=== PATIENT | male | born 1975 | race Caucasian/White ===

== ENCOUNTER 2018-10-11 00:19 | Outpatient (CLI) | payer MEDICAID, SELFPAY ==
--- NOTE | 2018-10-11 16:21 | DI.RAD_ITS ---
SYMPTOM/DIAGNOSIS: RT FOOT PAIN, M79.671 RIGHT FOOT: No fracture or dislocation is seen. There are mild degenerative changes at the first MTP joint. There is some deformity at the base of the fifth metatarsal. There are a few small ossicles at this site. The findings are consistent with old trauma. There are small heel spurs. IMPRESSION: Deformity and small ossicles near the base of the fifth metatarsal. Mild degenerative changes. RIGHT ANKLE: There is soft tissue edema. There are circumscribed densities seen both anterior and posterior at the tibiotalar joint. The findings could be related to old trauma. There is mild richy-articular spurring and mild joint space narrowing. No talar dome defect is seen. IMPRESSION: Mild degenerative changes.
== END 2018-10-11 00:39 ==
PROVIDERS: PCP Nurse Practitioner Family; Visit Provider Nurse Practitioner
DX: M79.671 Pain in right foot (principal); M19.071 Primary osteoarthritis, right ankle and foot; M77.31 Calcaneal spur, right foot; M21.6X1 Other acquired deformities of right foot
CPT/HCPCS: 73610; 73630

== ENCOUNTER 2019-11-18 09:02 | Emergency (ER) | payer MEDICAID, SELFPAY ==
[2019-11-18] VITALS (13 sets, daily range): BP systolic 132–150; BP diastolic 71–82; PULSE 72–91; RESP 4–27; TEMP 36.5–36.7; O2SAT 92–97
--- NOTE | 2019-11-18 09:15 | DI.RAD_ITS ---
EXAM: XR CHEST 2V PA LATERAL XR CHEST 2V PA LATERAL CLINICAL HISTORY: cough, sputum, wheeze cough, sputum, wheeze TECHNIQUE: 2D digital imaging was performed. COMPARISON: CHEST 2 VIEWS PA,LAT from 03/01/2014 FINDINGS: The heart is not enlarged. The lungs are clear and well expanded. No pleural effusion seen. Mediastin al contours appear intact. IMPRESSION: Normal chest
--- NOTE | 2019-11-18 09:19 | W.ED.GENAD ---
Discharge Plan Disposition Patient Disposition: HOME Condition: Improving Discharge Details Chief Complaint: GenMedical Clinical Impression: Acute bronchitis with bronchospasm Primary Care Provider: Marisol Noble ED Provider: Ricky Do Home Meds and New Rx's Prescriptions: New doxycycline hyclate 100 mg capsule 100 mg PO BID 10 Days Qty: 20 RF: 0 Discharge Instructions Instructions: Acute Bronchitis (ED) Additional Instructions: Small, frequent sips of fluids so that you maintain hydration. May use the provided albuterol inhaler 1 to 2 puffs every 4-6 hours as needed during times of illness. Please take doxycycline as prescribed for its entire course. Please follow-up with Lalitha Noble in clinic if not improving in 5 days time. Return to the emergency department for any acute concerns. Stand Alone Forms: Work Release Medical Decision Making This is a 44-year-old male presents with days of cough, congestion, generalized systemic illness with fever, chills, diarrhea over the last 24 hours. His exam reveals normal vital signs but bilateral right greater than left end expiratory wheezes. Differential diagnosis includes pneumonia, bronchitis, influenza, bronchospasm. IV was placed, labs obtained, patient given fluid bolus, ketorolac, DuoNeb, Zofran. Chest x-ray: No acute findings Labs: Reassuring with unremarkable CBC, chemistries, negative troponin. Influenza negative. Patient improved with fluids and DuoNeb updraft. Do not feel he requires a burst of steroid but will benefit from the use of an albuterol inhaler. Will treat him for bronchitis. Patient understands homecare, indications to seek a reevaluation, as well as anticipated course of resolution. Lab Data Lab results reviewed: Yes I reviewed the patient's lab results. Labs: Laboratory Results - last 24 hr 11/18/19 11/18/19 09:18 09:18 WBC 7.86 RBC 5.20 Hgb 15.3 Hct 45.0 MCV 86.5 MCH 29.4 MCHC 34.0 RDW 13.8 Plt Count 240 MPV 12.1 H Immature Gran % 0.1 Neutrophils % 61.5 Lymphocytes % 27.0 Monocytes % 6.7 Eosinophils % 4.2 Basophils % 0.5 Absolute Neutrophils 4.83 Absolute Lymphocytes 2.12 Absolute Monocytes 0.53 Absolute Eosinophils 0.33 Absolute Basophils 0.04 Sodium 140 Potassium 4.0 Chloride 104 Carbon Dioxide 31.0 Anion Gap 5.0 BUN 15 Creatinine 0.73 Estimated GFR/1.73 m2 >= 60.00 Glucose 103 Calcium 8.2 L Magnesium 1.9 Total Bilirubin 0.7 AST 14 L ALT 26 Alkaline Phosphatase 65 Troponin I < 0.05 Total Protein 7.0 Albumin 3.5 ECG Data Attestation: I personally reviewed and interpreted this ECG (s) as follows: Prior ECG tracings: not available for review Interpretation: Normal sinus rhythm with a rate of 76, the QRS is narrow, there is a T wave inversion in V2. Nonspecific flattening in lead III, no ST segment elevation. No comparisons available. QTc 423 HPI General Mode of arrival: ambulatory. Date/Time Provider Initiated Documentation: 11/18/19 09:03. Limitations to Documentation: no limitations. Information obtained by: patient. History of Present Illness 44 year old M presents to the emergency department with the chief complaint of 4 days cough, congestion, production of green and yellow sputum, body ache, described as moderate, and is localized to the chest. Patient reports no radiation. Patient started experiencing this day(s) and it has been constant. No relieving factors improve symptom(s), No exacerbating factors reported . Patient notes cough, fever/chills, loss of appetite, nausea/vomiting and weakness; denies chest pain, shortness of breath and syncope. Patient did receive the following treatments prior to arrival, none Related Data Home Medications Medication Instructions Recorded Confirmed doxycycline hyclate 100 mg PO BID 10 Days #20 cap 11/18/19 Previous Rx's Medication Instructions Recorded doxycycline hyclate 100 mg PO BID 10 Days #20 cap 11/18/19 Allergies Allergy/AdvReac Type Severity Reaction Status Date / Time No Known Allergies Allergy Unverified 11/18/19 09:11 General Stated Complaint: GenMedical MICHAEL: 2 Review of Systems Narrative: Denies to me chest pain. States no shortness of breath. Continues to smoke. No recent travel or known sick contacts. 6 systems reviewed and otherwise negative [facility], [facility] Social History Smoking/Tobacco Use Status: Current every day Alcohol Intake: never Drug use: Never Do you feel safe at home: Yes Do you feel safe in your relationship?: Yes Exam Narrative Exam Narrative: GEN: awake, alert, oriented 3. Pleasant, well groomed, interactive. HEAD: Normocephalic, atraumatic ENT: Mucous membranes moist, oropharynx unremarkable, External ear exam unremarkable EYES: PERRL, EOMI NECK: Full ROM, no ALANA, no menigismus CHEST/RESP: Nontender, bibasilar right greater than left expiratory wheeze CARDIOVASCULAR: RRR, no murmur, rub ravi. 2+ Rad pulse bilateral ABDOMEN: Soft, nontender, no mass. +Bowel sounds EXT: Full ROM, no edema, no rash Neuro: Grossly normal neurologic exam, conversant, interactive. Psych: Speech fluent, thoughts congruent, affect normal Course Vital Signs Vital signs: Vital Signs Temperature 36.5 C 11/18/19 09:06 Pulse 76 11/18/19 09:06 Respiratory Rate 24 11/18/19 09:06 Blood Pressure 140/73 11/18/19 09:06 Pulse Oximetry 95 11/18/19 09:06 Temperature 36.5 C 11/18/19 09:06 Temperature Source Oral 11/18/19 09:06 Pulse 76 11/18/19 09:06 Respiratory Rate 24 11/18/19 09:06 Respiratory Effort Non-Labored 11/18/19 09:10 Blood Pressure 140/73 11/18/19 09:06 Blood Pressure Position Supine 11/18/19 09:06 Pulse Oximetry 95 11/18/19 09:06 Oxygen Delivery Method Room Air 11/18/19 09:06 Oxygen Flow Rate 0 11/18/19 09:06 Pain Level 5 11/18/19 09:06
[2019-11-18 09:38] LABS: Abs Immature Grans 0.01 k/cumm (0.0-0.09); Absolute Basophil Count 0.04 k/cumm (0.0-0.2); Absolute Eosinophil Count 0.33 k/cumm (0.0-0.7); Absolute Lymphocyte Count 2.12 k/cumm (1.2-3.4); Absolute Monocyte Count 0.53 k/cumm (0.11-0.7); Absolute Neutrophil Count 4.83 k/cumm (1.2-6.7); Basophils % 0.5; Eosinophils % 4.2; HGB 15.3 g/dL (13.5-17.5); Immature Grans % 0.1 %; Mean Corpuscular Hemoglobin 29.4 pg (27.0-33.0); Mean Corpuscular Volume 86.5 fL (80-95); Mean Platelet Volume 12.1 fL (8.0-11.0); Monocytes % 6.7; Neutrophils % 61.5; Platelet Count 240 x1000/uL (130-400); RBC Distribution Width 13.8 % (11.8-14.1); White Blood Cell Count 7.86 k/cumm (4.4-10.8)
[2019-11-18] MEDS: Ketorolac 15 MG/ML VIAL IVP (09:49)
[2019-11-18] MEDS: Albuterol/Ipratropium 3 ML UPD VIAL UPD (09:50)
[2019-11-18] MEDS: Ondansetron 4 MG/2 ML VIAL IVP (09:50)
[2019-11-18] MEDS: Normal Saline 1,000 ML 1000 ML IV (09:51)
[2019-11-18 09:59] LABS: ALT 26 U/L (16-63); AST 14 U/L (15-37); Albumin 3.5 g/dL (3.4-5.0); Alkaline Phosphatase 65 U/L (46-116); BUN 15 mg/dL (7-18); Bilirubin, Total 0.7 mg/dL (0.2-1.0); CREATININE 0.73 mg/dL (0.70-1.30); Calcium 8.2 mg/dL (8.5-10.1); Chloride 104 mmol/L (98-107); Glucose 103 mg/dL (74-106); Magnesium 1.9 mg/dL (1.8-2.4); Sodium 140 mmol/L (136-145); Troponin I < 0.05 ng/Ml (<0.06)
--- NOTE | 2019-11-18 11:05 | DI.VRAD_ITS ---
PROCEDURE INFORMATION: Exam: XR Chest, 2 Views Exam date and time: 11/18/2019 10:33 AM Age: 44 years old Clinical indication: Cough and wheezing; Patient HX: Sputum TECHNIQUE: Imaging protocol: XR of the chest Views: 2 views. COMPARISON: CR CHEST 2 VIEWS PA,LAT 03/01/2014 3:30 PM FINDINGS: Lungs: Unremarkable. No consolidation. Pleural space: Unremarkable. No pleural effusion. No pneumothorax. Heart/Mediastinum: Unremarkable. No cardiomegaly. Bones/joints: Unremarkable. IMPRESSION: No acute findings. Dictated and Authenticated by: Stew Strauss MD. Ordering:JUDY García MD
== END 2019-11-18 11:16 | disposition home or self-care (01) ==
PROVIDERS: Emergency Provider Emergency Medicine; PCP Nurse Practitioner Family
DX: R50.9 Fever, unspecified (principal); R05 Cough; J20.9 Acute bronchitis, unspecified; F17.210 Nicotine dependence, cigarettes, uncomplicated
CPT/HCPCS: 36415; 80053; 87449; 93005; 94640; 96361; 96374; 96375; 99285; 71046; 83735; 84484; 85025; 93010; 99284; J1885; J2405; J7620

== ENCOUNTER 2020-06-01 12:19 | Emergency (ER) | payer MEDICAID, SELFPAY ==
[2020-06-01 12:27] VITALS: BP 141/93; PULSE 79; RESP 18; TEMP 37; O2SAT 97
--- NOTE | 2020-06-01 13:03 | ED.GENADUL_ITS ---
Discharge Plan Disposition Patient Disposition: HOME Condition: Stable Discharge Details Chief Complaint: Orthopedic Clinical Impression: Arm pain Primary Care Provider: Marisol Noble ED Provider: Ajith Delgado Home Meds and New Rx's Prescriptions: Continued citalopram 10 mg tablet 10 mg PO DAILY RF: 0 Discharge Instructions Instructions: Muscle Strain (ED) Additional Instructions: [id number] Motrin and/or Tylenol as directed for discomfort. Cool and/or warm compresses every 2 hours for 20 minutes. Gentle stretching as tolerated. Please watch for new or worsening symptoms and return to the ER for any concerns. I do recommend follow-up with your primary care provider in the next week, if symptoms are not persisting outpatient physical therapy and/or referral to orthopedics may be indicated. Stand Alone Forms: Work Release Discharge Data Discharge Date/Time-TO BE ENTERED AT DEPARTURE: 06/01/20 13:19 Medical Decision Making 44-year-old gentleman who injured his right upper arm a couple days ago after lifting a heavy object. Reports he had mild tingling but that has resolved. He is able to move his arm fully but that does increase his discomfort. He took Motrin today which greatly helped his discomfort. Clinically he appears well, neuro, vascular, tendon intact. There is no bony point tenderness. A little suspicion of bony abnormality. We discussed x-ray in this setting, patient does not feel as though it is indicated and I agree. The musculoskeletal in nature. No obvious tendon rupture. No bony point tenderness. No deformity. We discussed our options. He will rest, cool and/or warm compresses, [id number] anti-inflammatories as directed. He will do light duty at work for the next 5 days and if symptoms persist will follow-up with a primary care provider or orthopedic provider. He was encouraged to return to the ER for new or worsening symptoms. Medical Records Medical records reviewed: Yes I reviewed the patient's medical records. HPI General Mode of arrival: ambulatory . Date/Time Provider Initiated Documentation: 06/01/20 12:30 . Limitations to Documentation: no limitations . Information obtained by: patient . HPI Narrative: This is a 44-year-old gentleman who denies significant past medical history, presenting for right arm pain that began 2 days ago when lifting an object overhead that was nearly 150 pounds. This occurred at work. He is right-hand dominant. He reports that the pain at the time was mild but subsequently throughout the day and the following day pain became worse and more stiff. At one point he did have tingling in his hand but that has resolved completely. Patient reports that he took Motrin today which helped his discomfort greatly. At rest he has very little discomfort but when attempting to move over 90 degrees he states that his pain increases. Denies any other injury, neck pain, chest pain, numbness, or weakness. He states that his employer requested that he be evaluated. Related Data Home Medications Medication Instructions Recorded Confirmed citalopram 10 mg PO DAILY 06/01/20 06/01/20 Allergies Allergy/AdvReac Type Severity Reaction Status Date / Time No Known Allergies Allergy Unverified 06/01/20 12:27 General Stated Complaint: Orthopedic MICHAEL: 4 Review of Systems Constitutional Constitutional: Denies fever(s) and Denies weakness ENT Ears, Nose, Mouth, and Throat: Denies neck pain Cardiovascular Cardiovascular: Denies chest pain and Denies dyspnea Respiratory Respiratory: Denies dyspnea Gastrointestinal Gastrointestinal: Denies abdominal pain, Denies nausea and Denies vomiting Musculoskeletal Musculoskeletal: Denies back pain, Denies neck pain, Denies numbness and Reports tingling Integumentary/Breasts Skin/Breast: Denies rash Neurologic Neurologic: Denies numbness, Reports tingling and Denies weakness [facility] Social History Smoking/Tobacco Use Status: Current every day Alcohol Intake: current Alcohol Intake frequency: holidays/special occasions only Drug use: Never Substance use type: does not use Do you feel safe at home: Yes Do you feel safe in your relationship?: Yes Exam Const General: cooperative, healthy appearing, comfortable and no acute distress Orientation: alert, awake and oriented x3 HENMT Head: normal to inspection, normocephalic and atraumatic Face and sinus: normal facial exam Mouth: moist mucous membranes Eyes Conjunctivae: conjunctivae normal Sclera: sclerae normal Neck Neck: normal visual inspection, full ROM, trachea midline, supple and nontender Chest Chest: normal palpation of entire chest wall Resp Effort & Inspection: normal respiratory effort and able to speak in complete sentences Auscultation: clear to auscultation bilaterally Cardio Rate: regular rate Rhythm: regular rhythm Back/Spine/Pelvis Back: No back tenderness Skin General skin exam: no rashes or lesions noted Neuro General: patient alert, patient awake, moves all extremities and no focal motor deficits Gait: normal gait Motor: muscle tone normal throughout and strength 5/5 throughout Sensory Exam: no sensory deficits noted Extrem Right upper extremity: normal to inspection, full ROM (However increased pain with movement over 90 degrees.), normal capillary refill and shoulder/upper arm Details: normal to inspection, tenderness (Diffuse, mild, bicep and tricep), axillary nerve sensory function normal and normal ROM; no swelling and no ecchymosis Left upper extremity: normal to inspection, full ROM and normal capillary refill Psych Appearance: grossly normal Mental Status: mental status grossly normal Course Vital Signs Vital signs: Vital Signs Temperature 37.0 C 06/01/20 12:27 Pulse 79 06/01/20 12:27 Respiratory Rate 18 06/01/20 12:27 Blood Pressure 141/93 H 06/01/20 12:27 Pulse Oximetry 97 06/01/20 12:27 Temperature 37.0 C 06/01/20 12:27 Temperature Source Oral 06/01/20 12:27 Pulse 79 06/01/20 12:27 Respiratory Rate 18 06/01/20 12:27 Respiratory Effort Non-Labored 06/01/20 12:27 Blood Pressure 141/93 H 06/01/20 12:27 Blood Pressure Position Sitting 06/01/20 12:27 Pulse Oximetry 97 06/01/20 12:27 Oxygen Delivery Method Room Air 06/01/20 12:27 Oxygen Flow Rate 0 06/01/20 12:27 Pain Level 8 06/01/20 12:36 Comment 06/01/20 12:27
== END 2020-06-01 13:19 | disposition home or self-care (01) ==
PROVIDERS: Emergency Provider Physician Assistant; PCP Nurse Practitioner Family
DX: M79.601 Pain in right arm (principal); X50.0XXA Overexertion from strenuous movement or load, initial encounter; Y99.0 Civilian activity done for income or pay
CPT/HCPCS: 99282

== ENCOUNTER 2020-08-10 15:35 | Emergency (ER) | payer MEDICAID, SELFPAY ==
[2020-08-10 15:39] VITALS: BP 177/105; PULSE 85; RESP 16; TEMP 36.7; O2SAT 97
--- NOTE | 2020-08-10 15:45 | DI.RAD_ITS ---
EXAM: XR PORTABLE CHEST AP CLINICAL HISTORY: cough, r/o pneumonia TECHNIQUE: COMPARISON: No exams were available for comparison FINDINGS: Portable AP chest at 1600 hours. The heart is at the upper limits of normal in size. There are a qu estionable patchy bibasilar infiltrates, pneumonia not excluded. Upper lung zones appear fairly davonte r. No gross pleural effusion on this frontal film. IMPRESSION: Question patchy basilar pneumonia. Follow-up PA and lateral chest suggested. RADIATION DOSE DELIVERED: Total DLP
--- NOTE | 2020-08-10 15:50 | W.ED.GENAD ---
Discharge Plan Disposition Patient Disposition: HOME Condition: Stable Discharge Details Clinical Impression: Pneumonia Primary Care Provider: Marisol Noble ED Provider: Ruddy Olivo Home Meds and New Rx's Prescriptions: New doxycycline hyclate 100 mg tablet 100 mg PO BID Qty: 20 RF: 0 Continued citalopram 10 mg tablet 10 mg PO DAILY RF: 0 Discharge Instructions Instructions: Upper Respiratory Infection (ED), Community Acquired Pneumonia (ED) Additional Instructions: There is evidence of mild or early pneumonia. Please take the antibiotic as directed. Your Covid test is not back yet. Out of an abundance of precaution it would be reasonable to self quarantine yourself for a total of 14 days or until completely symptom-free for greater than 24-48 hours. It would be prudent to wear a mask at all times, always wash your hands frequently, follow-up closely with your primary care provider. Your Covid test should come back in the next 7 to 10 days, you will be contacted when the results do return. If you do not hear back from a during that time please call us to go over your results. You can always call their office first. If you notice any worsening of your symptoms, or any new symptoms such as vomiting, diarrhea, fever, chills, shortness of breath, chest pain, numbness, weakness, or fainting , please CALL and then return immediately to the emergency department for reevaluation. Please CALL first and then follow up with your primary care provider as soon as possible for reassessment and reevaluation. As always, it was a pleasure participating in your medical care today. Stand Alone Forms: PENDING COVID-19 TESTING Referrals: Marisol Noble [Primary Care Provider] - Medical Decision Making 44-year-old male with a past medical history of tobacco abuse who presents today for evaluation of cough, muscle aches, sore throat. Patient states that for the last 24 hours he has had these symptoms. Cough is relatively nonproductive, no hemoptysis. He denies chest pain or shortness of breath or headache or neck pain or vomiting or diarrhea or nausea. He denies exposure to any other sick contacts. He denies any other complaints. No other modifying factors. Physical exam is unremarkable, no tachycardia, tachypnea, hypoxemia or fever. Lungs are unremarkable. Suspect viral etiology. Will test for flu and Covid and get a portable chest x-ray. 5 PM Chest x-ray shows evidence concerning for mild early pneumonia. We will start the patient on doxycycline. He has been tested for flu and this is negative, we are pending Covid testing. Discussed recommendations for self isolation. With no hypoxemia, tachycardia, or tachypnea no indication for admission or supplemental oxygen. I have extensively reviewed the treatment plan and discharge instructions with the patient. I have addressed all patient concerns at this time. The patient was made aware of what symptoms to monitor for that would warrant a return to the emergency department. Discussed the plan with the patient, they demonstrate verbal understanding and agreement with our assessment and plan at this time. FINDINGS: Lungs: There are mild somewhat linear opacities in bilateral lower lungs which could be due to atelectasis or infiltrate. Cardiac silhouette is within normal limits in size. The interstitium is stable. Pleural space: Unremarkable. No pleural effusion. No pneumothorax. Heart/Mediastinum: See Lungs finding. Bones/joints: No acute abnormality in the osseous structures. Soft tissues are unremarkable. IMPRESSION: Mild opacities in the bilateral lower lungs which could reflect atelectasis or infiltrate. No pleural effusion . Thank you for allowing us to participate in the care of your patient. Dictated and Authenticated by: Agustin Conde DO 08/10/2020 4:25 PM Eastern Time ([place] & [place]) HPI General Date/Time Provider Initiated Documentation: 08/10/20 15:37. HPI Narrative: 44-year-old male with a past medical history of tobacco abuse who presents today for evaluation of cough, muscle aches, sore throat. Patient states that for the last 24 hours he has had these symptoms. Cough is relatively nonproductive, no hemoptysis. He denies chest pain or shortness of breath or headache or neck pain or vomiting or diarrhea or nausea. He denies exposure to any other sick contacts. He denies any other complaints. No other modifying factors. Related Data Home Medications Medication Instructions Recorded Confirmed citalopram 10 mg PO DAILY 06/01/20 08/10/20 doxycycline hyclate 100 mg PO BID #20 tab 08/10/20 Previous Rx's Medication Instructions Recorded doxycycline hyclate 100 mg PO BID #20 tab 08/10/20 Allergies Allergy/AdvReac Type Severity Reaction Status Date / Time No Known Allergies Allergy Unverified 08/10/20 15:44 General Stated Complaint: GenMedical MICHAEL: 3 Review of Systems All systems reviewed & are unremarkable except as noted in HPI and below PFSH Social History Smoking/Tobacco Use Status: Current every day Tobacco Type: cigarettes Smoking risk assessment performed?: Yes Alcohol Intake: current Alcohol Intake frequency: holidays/special occasions only Drug use: Never Substance use type: does not use Do you feel safe at home: Yes Do you feel safe in your relationship?: Yes Exam Narrative Exam Narrative: 1.Const: Well-nourished, Well-developed, appearing stated age 2.Eyes: PERRL, no conjunctival injection, and symmetrical lids. 3.ENT: Atraumatic external nose and ears. Moist MM. Neck: Symmetric, trachea midline, No thyromegaly. No nuchal rigidity. Minimal erythema on the uvula, no significant erythema in the posterior pharynx, no cough or exudate or tonsillar enlargement. 4.CVS: +S1/S2, No murmurs or gallops. Peripheral pulses 2+ and equal in all extremities. Brisk capillary refill in all extremities. 5.RESP: Unlabored respiratory effort. Clear to auscultation bilaterally. No wheezes rales or rhonchi 6.GI: Soft, Nontender/Nondistended, No hepatosplenomegaly. No guarding or rebound. 7.MSK: Normocephalic/Atraumatic, Extremities w/o deformity or ttp No cyanosis or clubbing, Normal movement of all extremities 8.Skin: Warm, Dry. No rashes or lesions. 9.Neuro: benefits consultant II-XII grossly intact. Sensation grossly intact, no focal neurologic deficits. 10.Psych: (AAO) x3. Appropriate mood and affect Course Vital Signs Vital signs: Vital Signs Temperature 36.7 C 08/10/20 15:39 Pulse 85 08/10/20 15:39 Respiratory Rate 16 08/10/20 15:39 Blood Pressure 177/105 H 08/10/20 15:39 Pulse Oximetry 97 08/10/20 15:39 Temperature 36.7 C 08/10/20 15:39 Temperature Source Skin 08/10/20 15:39 Pulse 85 08/10/20 15:39 Respiratory Rate 16 08/10/20 15:39 Respiratory Effort Non-Labored 08/10/20 15:39 Blood Pressure 177/105 H 08/10/20 15:39 Blood Pressure Position Supine 08/10/20 15:39 Pulse Oximetry 97 08/10/20 15:39 Pain Level 2 08/10/20 15:39 Lab/Test Results Lab/Test Results: 08/10/20 15:49 Nasopharynx Influenza Types A,B Antigen - Pending
[2020-08-10 15:52] VITALS: RESP 16
--- NOTE | 2020-08-10 16:25 | DI.VRAD_ITS ---
PROCEDURE INFORMATION: Exam: XR Chest, 1 View Exam date and time: 08/10/2020 3:49 PM Age: 44 years old Clinical indication: Cough and shortness of breath TECHNIQUE: Imaging protocol: XR of the chest Views: 1 view. COMPARISON: CR XR CHEST 2V PA LATERAL 11/18/2019 10:32 AM FINDINGS: Lungs: There are mild somewhat linear opacities in bilateral lower lungs which could be due to atelectasis or infiltrate. Cardiac silhouette is within normal limits in size. The interstitium is stable. Pleural space: Unremarkable. No pleural effusion. No pneumothorax. Heart/Mediastinum: See Lungs finding. Bones/joints: No acute abnormality in the osseous structures. Soft tissues are unremarkable. IMPRESSION: Mild opacities in the bilateral lower lungs which could reflect atelectasis or infiltrate. No pleural effusion . Dictated and Authenticated by: Agustin Conde MD. Ordering:ELEONORA Fox MD
[2020-08-10] MEDS: Doxycycline Hyclate 100 MG, 2 CAPS/BTL PO (17:09)
[2020-08-14 03:37] LABS: Patient Race White; SARS-CoV-2 RNA Undetected (Undetected); SARS-CoV-2 Specimen Source Nasopharynx
== END 2020-08-10 17:04 | disposition home or self-care (01) ==
LOC: ER 16:02
PROVIDERS: Emergency Provider Student in an Organized Health Care Education/Training Program; PCP Nurse Practitioner Family
DX: J18.8 Other pneumonia, unspecified organism (principal); F17.210 Nicotine dependence, cigarettes, uncomplicated; Z11.59 Encounter for screening for other viral diseases
CPT/HCPCS: 87449; 99283; U0003; 71045; 99284

== ENCOUNTER 2020-10-25 16:21 | Emergency (ER) | payer MEDICAID, SELFPAY ==
[2020-10-25 16:24] VITALS: BP 151/79; PULSE 77; RESP 20; TEMP 36.3; O2SAT 98
--- NOTE | 2020-10-25 16:30 | DI.RAD_ITS ---
EXAM: XR RIBS RT W PA LAT CHEST CLINICAL HISTORY: fall/pain TECHNIQUE: 2D digital imaging was performed. COMPARISON: CR,XR XR PORTABLE CHEST AP from 08/10/2020 FINDINGS: Exam is limited by the patient's body habitus. The heart appears mildly enlarged versus magnificati on. The lungs appear clear. No pneumothorax is seen. There is no infiltrate or effusion. No thora cic compression fractures are seen. Two views of the right ribs were performed. One of the views sh ows motion. No rib fracture is visible. IMPRESSION: Limited exam secondary to patient body habitus. No acute abnormality is identified.
--- NOTE | 2020-10-25 16:40 | ED.GENADUL_ITS ---
Discharge Plan Disposition Patient Disposition: HOME Condition: Stable Discharge Details Clinical Impression: Right-sided chest wall pain Primary Care Provider: Marisol Noble ED Provider: Ajith Delgado Home Meds and New Rx's Prescriptions: Continued citalopram 10 mg tablet 10 mg PO DAILY RF: 0 Discharge Instructions Instructions: Chest Wall Pain (ED) Additional Instructions: Chest x-ray was unremarkable. I am giving you a work note for tomorrow. [id number] Tylenol and/or Motrin as directed for discomfort. Cool and/or warm compresses every 2 hours for 20 minutes. Gentle stretching as tolerated. Please watch for new or worsening symptoms and return to the ER for any concerns. Otherwise please reach out to your primary care provider on Wednesday for prompt outpatient reevaluation. Stand Alone Forms: Work Release Medical Decision Making 45-year-old male presents with right-sided back and chest wall discomfort status post mechanical fall earlier this morning down 12 stairs. He reports the pain is 2 out of 10 at rest, worse with movement. Denies any other injury. Clinically he appears well, nontoxic. Extremely low suspicion for pneumothorax. Pulse of 77, O2 sat 98% on room air. Do not appear to be any distracting injuries. Abdomen soft, nontender. He is neuro intact. Will obtain right sided rib film with PA chest. Chest x-ray read by radiology is unremarkable. Discussed findings with patient. He is relieved. He does believe a work note for 1 day will be helpful. Will provide work note for tomorrow. Patient comfortable discharge and has no additional questions or concerns. Medical Records Medical records reviewed: Yes I reviewed the patient's medical records. HPI General Mode of arrival: ambulatory . Date/Time Provider Initiated Documentation: 10/25/20 16:26 . Limitations to Documentation: no limitations . Information obtained by: patient . HPI Narrative: This is a 45-year-old gentleman, past medical history of obesity, current smoker, presenting with right-sided chest wall pain status post a mechanical fall downstairs this morning. He was at home, trying to step around his dog, fell down approximately 12 stairs. He states that he fell backwards and then down the stairs. He denies striking his head, LOC, headache, neck pain, anterior chest wall pain, abdominal pain, nausea, vomiting, bowel or bladder incontinence or retention. Denies numbness, tingling, weakness. He reports right sided chest wall pain 2 out of 10 at rest, worse with movement or engaging of his core. He did take [id number] medication with some relief. 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 Related Data Home Medications Medication Instructions Recorded Confirmed citalopram 10 mg PO DAILY 06/01/20 10/25/20 Allergies Allergy/AdvReac Type Severity Reaction Status Date / Time No Known Allergies Allergy Unverified 10/25/20 16:27 General Stated Complaint: Nk/Back Pain MICHAEL: 3 Review of Systems Constitutional Constitutional: Denies headache(s) and Denies weakness Eyes Eyes: Denies change in vision ENT Ears, Nose, Mouth, and Throat: Denies headache(s) and Denies neck pain Cardiovascular Cardiovascular: Reports chest pain (Chest wall, lateral) and Denies dyspnea Respiratory Respiratory: Denies dyspnea Gastrointestinal Gastrointestinal: Denies abdominal pain, Denies nausea and Denies vomiting Genitourinary Genitourinary: Denies hematuria Musculoskeletal Musculoskeletal: Reports back pain, Denies neck pain, Denies numbness and Denies tingling Neurologic Neurologic: Denies headache(s), Denies numbness, Denies tingling and Denies weakness [facility] Social History Smoking/Tobacco Use Status: Current every day Tobacco Type: cigarettes Smoking risk assessment performed?: Yes Alcohol Intake: current Alcohol Intake frequency: holidays/special occasions only Drug use: Never Substance use type: does not use Do you feel safe at home: Yes Do you feel safe in your relationship?: Yes Exam Const General: cooperative, healthy appearing, comfortable and no acute distress Orientation: alert, awake and oriented x3 HENMT Head: normal to inspection, normocephalic and atraumatic Eyes General: appearance normal, both eyes and all related structures Conjunctivae: conjunctivae normal Sclera: sclerae normal Neck Neck: normal visual inspection, full ROM, no meningeal signs, trachea midline, supple and nontender Chest Chest: normal inspection of the chest, no crepitus and tenderness Chest/axillae images: 1. Diffuse discomfort, without crepitus. Skin is intact. There is no midline point tenderness or bony point tenderness. Resp Effort & Inspection: normal respiratory effort and able to speak in complete sentences Auscultation: clear to auscultation bilaterally Cardio Rate: regular rate Rhythm: regular rhythm GI Inspection: normal to inspection, large pannus and obesity Palpation: soft and nontender Back/Spine/Pelvis Back: back tenderness Back/spine/pelvis image: 1. Diffuse discomfort, without crepitus. Skin is intact. There is no midline point tenderness or bony point tenderness. Skin General skin exam: no rashes or lesions noted Neuro General: patient alert, patient awake, patient oriented x3, moves all extremities and no focal motor deficits Cognition: normal cognition Speech: speech normal Gait: normal gait Motor: muscle tone normal throughout Sensory Exam: no sensory deficits noted Extrem General: normal to inspection and full ROM Psych Appearance: grossly normal Mental Status: mental status grossly normal Course Vital Signs Vital signs: Vital Signs Temperature 36.3 C L 10/25/20 16:24 Pulse 77 10/25/20 16:24 Respiratory Rate 20 10/25/20 16:24 Blood Pressure 151/79 H 10/25/20 16:24 Pulse Oximetry 98 10/25/20 16:24 Temperature 36.3 C L 10/25/20 16:24 Temperature Source Skin 10/25/20 16:24 Pulse 77 10/25/20 16:24 Respiratory Rate 20 10/25/20 16:24 Respiratory Effort Non-Labored 10/25/20 16:27 Blood Pressure 151/79 H 10/25/20 16:24 Blood Pressure Position Sitting 10/25/20 16:24 Pulse Oximetry 98 10/25/20 16:24 Oxygen Delivery Method Room Air 10/25/20 16:24 Oxygen Flow Rate 0 10/25/20 16:24 Pain Level 5 10/25/20 16:24
--- NOTE | 2020-10-25 17:34 | DI.VRAD_ITS ---
PROCEDURE INFORMATION: Exam: XR Right Ribs Exam date and time: 10/25/2020 5:13 PM Age: 45 years old Clinical indication: Injury or trauma; Fall; Sprain or strain; Rib area TECHNIQUE: Imaging protocol: XR Right ribs. Views: 2 views. COMPARISON: CR XR PORTABLE CHEST AP 08/10/2020 3:52 PM FINDINGS: Bones/joints: Normal. Soft tissues: Normal. IMPRESSION: No evidence for acute fracture. PROCEDURE INFORMATION: Exam: XR Chest, 2 Views Exam date and time: 10/25/2020 5:13 PM Age: 45 years old Clinical indication: Injury or trauma; Fall; Sprain or strain; Rib area TECHNIQUE: Imaging protocol: XR of the chest Views: 2 views. COMPARISON: CR XR PORTABLE CHEST AP 08/10/2020 3:52 PM FINDINGS: Lungs: Unremarkable. No consolidation. Pleural spaces: Unremarkable. No pleural effusion. No pneumothorax. Heart/Mediastinum: Mild cardiomegaly. Bones/joints: Unremarkable. IMPRESSION: No evidence for acute abnormality in the chest. Dictated and Authenticated by: Odette Caro MD. Ordering:HIMA Canseco MD
== END 2020-10-25 18:06 | disposition home or self-care (01) ==
PROVIDERS: Emergency Provider Physician Assistant; PCP Nurse Practitioner Family
DX: R07.81 Pleurodynia (principal); W10.8XXA Fall (on) (from) other stairs and steps, initial encounter
CPT/HCPCS: 99283; 71046; 71100

== ENCOUNTER 2020-12-26 10:36 | Emergency (ER) | payer MEDICAID, SELFPAY ==
[2020-12-26] VITALS (29 sets, daily range): BP systolic 113–155; BP diastolic 66–91; PULSE 55–81; RESP 12–24; TEMP 37.1; O2SAT 84–99
--- NOTE | 2020-12-26 10:45 | RT.EKG_ITS ---
APPROVED REPORT Exam: Resting ECG Patient Location: E HR:70 bpm ECG Measurements Heart Rate 70 AXIS FL 193 P 44 QRSd 102 QRS 13 QT 381 T 20 QTc 413 Conclusion Sinus rhythm...normal P axis, V-rate 60- 99
--- NOTE | 2020-12-26 11:00 | DI.RAD_ITS ---
EXAM: XR PORTABLE CHEST AP CLINICAL HISTORY: Cough, fever. TECHNIQUE: 2D digital imaging was performed. COMPARISON: CR,XR XR RIBS RT W PA LAT CHEST from 10/25/2020 FINDINGS: Lordotic AP portable view compared to 10/25/2020 Heart size is slightly enlarged, unchanged. Mediastinum unchanged. No infiltrates nor pleural effus ions. No pulmonary edema. No pneumothorax. IMPRESSION: No acute pulmonary findings on this single AP portable view of the chest.Mild cardiomegaly. Recommen d nonportable PA and lateral views when clinically possible. DATA REPOSITORY: RADIATION DOSE DELIVERED: All CT scans at this facility use at least one of these dose optimization techniques: automated exposure control; mA and/or kV adjustment per patient size (includes targeted e xams where dose is matched to clinical indication); or iterative reconstruction.
--- NOTE | 2020-12-26 11:03 | W.ED.GENAD ---
Discharge Plan Disposition Patient Disposition: HOME Condition: Improving Discharge Details Chief Complaint: Chest Pain Clinical Impression: Acute viral syndrome Primary Care Provider: Marisol Noble ED Provider: Ricky Do Discharge Instructions Instructions: Viral Syndrome (ED) Additional Instructions: Home to rest today. Small, frequent sips of fluid so that you maintain hydration. May use albuterol inhaler up to 3-4 times per day if needed for cough or mild wheeze. Continue your efforts to cut down cigarette use. Return if you develop difficulty breathing or any other acute concerns Stand Alone Forms: PENDING COVID-19 TESTING Medical Decision Making 45-year-old male presents from home with days of cough, fever, malaise. Positive sick contact with his daughter who he states tested negative for COVID-19. Also notes some dark-colored urine. He is not hypoxic nor febrile. Differential diagnosis with viral syndrome, pneumonitis, pneumonia, dehydration. Additionally, patient's had bronchospasm in the past and continues to smoke cigarettes. Screening laboratories obtained, patient given fluid bolus, referred for chest x-ray and COVID-19 test. Chest x-ray without evidence of infiltrate or effusion. Patient's laboratories note a white count of 7, hematocrit 46, platelets 223. Chemistries reassuring. Troponin negative. Patient subsequent felt improved, requested discharge to home. We discussed he has a Covid test pending. He is stable for discharge to home. He may use inhaler as needed. HPI General Mode of arrival: ambulatory. Date/Time Provider Initiated Documentation: 12/26/20 10:48. Limitations to Documentation: no limitations. Information obtained by: patient. History of Present Illness 45 year old M presents to the emergency department with the chief complaint of Cough, fever, body ache, described as moderate, Quality is described as dull and constant, and is localized to the chest. Patient reports no radiation. Patient started experiencing this day(s) and it has been intermittent. No relieving factors improve symptom(s), No exacerbating factors reported . Patient notes fever/chills, loss of appetite and malaise. Patient did receive the following treatments prior to arrival, none Related Data Allergies Allergy/AdvReac Type Severity Reaction Status Date / Time No Known Allergies Allergy Unverified 12/26/20 10:49 General Stated Complaint: Chest Pain MICHAEL: 2 Review of Systems Narrative: 6 systems reviewed and otherwise negative. Positive sick contacts with his daughter. Notes dark urine. [facility] Social History Smoking/Tobacco Use Status: Current every day Tobacco Type: cigarettes Smoking risk assessment performed?: Yes Alcohol Intake: current Alcohol Intake frequency: holidays/special occasions only Drug use: Never Substance use type: does not use Do you feel safe at home: Yes Do you feel safe in your relationship?: Yes Exam Narrative Exam Narrative: GEN: awake, alert, oriented 3. Pleasant, well groomed, interactive. HEAD: Normocephalic, atraumatic ENT: Mucous membranes moist, oropharynx unremarkable, External ear exam unremarkable EYES: PERRL, EOMI NECK: Full ROM, no ALANA, no menigismus CHEST/RESP: Nontender, diminished bilateral, no wheeze/rhonchi/rales CARDIOVASCULAR: RRR, no murmur, rub ravi. 2+ Rad pulse bilateral ABDOMEN: Soft, nontender, no mass. +Bowel sounds EXT: Full ROM, no edema, no rash Neuro: Grossly normal neurologic exam, conversant, interactive. Psych: Speech fluent, thoughts congruent, affect normal Course Vital Signs Vital signs: Vital Signs Temperature 37.1 C 12/26/20 10:44 Pulse 73 12/26/20 10:44 Respiratory Rate 20 12/26/20 10:44 Blood Pressure 148/91 H 12/26/20 10:44 Pulse Oximetry 98 12/26/20 10:44 Temperature 37.1 C 12/26/20 10:44 Temperature Source Temporal Artery Scan 12/26/20 10:44 Pulse 73 12/26/20 10:44 Respiratory Rate 20 12/26/20 10:49 Respiratory Effort Non-Labored 12/26/20 10:49 Respiratory Depth Normal 12/26/20 10:49 Respiratory Pattern Normal 12/26/20 10:49 Blood Pressure 148/91 H 12/26/20 10:44 Blood Pressure Position Sitting 12/26/20 10:44 Pulse Oximetry 98 12/26/20 10:44 Oxygen Delivery Method Room Air 12/26/20 10:44 Oxygen Flow Rate 0 12/26/20 10:44
[2020-12-26 11:23] LABS: Abs Immature Grans 0.01 10^3/uL (0.0-0.06); Absolute Basophil Count 0.06 10^3/uL (0.0-0.2); Absolute Eosinophil Count 0.24 10^3/uL (0.0-0.7); Absolute Lymphocyte Count 2.21 10^3/uL (1.2-3.4); Absolute Monocyte Count 0.47 10^3/uL (0.1-0.8); Absolute Neutrophil Count 4.36 10^3/uL (1.2-6.7); Basophils % 0.8; Eosinophils % 3.3; HCT 46.1 % (40.0-50.0); HGB 15.3 g/dL (13.5-17.5); Immature Grans % 0.1; Lymphocytes % 30.1; MCH 28.8 pg (27.0-33.0); MCHC 33.2 % (32.0-36.0); MCV 86.7 fL (80-95); MPV 12.4 fL (8.0-11.0); Monocytes % 6.4; Neutrophils % 59.3; Nucleated RBC 0 %; Platelet Count 223 10^3/uL (130-400); RBC 5.32 10^6/uL (4.36-5.78); RDW 13.2 % (11.8-14.1); RDW-SD 41.7 fL; WBC 7.35 10^3/uL (4.4-10.8)
[2020-12-26] MEDS: Albuterol HFA 8 GM 60 PUFF INH IH (11:27)
[2020-12-26] MEDS: Normal Saline 1,000 ML 1000 ML IV (11:28)
[2020-12-26 12:09] LABS: ALT 23 U/L (16-63); AST 13 U/L (15-37); Albumin 3.2 g/dL (3.4-5.0); Alkaline Phosphatase 63 U/L (46-116); Anion Gap 4.7 mmol/L (3-11); BUN 12 mg/dL (7-18); CO2 33.3 mmol/L (21.0-32.0); CREATININE 0.7 mg/dL (0.70-1.30); Calcium 8.8 mg/dL (8.5-10.1); Chloride 104 mmol/L (98-107); Glucose 89 mg/dL (74-106); Potassium 4.1 mmol/L (3.5-5.1); Sodium 142 mmol/L (136-145); Total Protein 6.9 g/dL (6.4-8.2)
[2020-12-26 12:10] LABS: Troponin I < 0.05 ng/mL (<0.06)
[2020-12-27 13:06] LABS: COVID-19 RT-PCR UVMMC Result Negative (Negative)
--- NOTE | 2020-12-27 18:36 | NUR.NOTE ---
Nursing Note: Pt called via phone and notified of negative covid results.
== END 2020-12-26 13:42 | disposition home or self-care (01) ==
PROVIDERS: Emergency Provider Emergency Medicine; PCP Nurse Practitioner Family
DX: B34.9 Viral infection, unspecified (principal); Z20.822 Contact with and (suspected) exposure to COVID-19
CPT/HCPCS: 80053; 93005; 94640; 96360; 99284; U0003; 71045; 83735; 84484; 85025; 93010; 99283

== ENCOUNTER 2021-04-07 14:32 | Emergency (ER) | payer MEDICAID, SELFPAY ==
[2021-04-07 14:41] VITALS: BP 149/89; PULSE 83; RESP 16; TEMP 37.2; O2SAT 98
[2021-04-07 15:02] LABS: Bilirubin Negative (Negative); Blood Small (Negative); Clarity Clear (Clear); Glucose Negative (Negative); Ketones Negative (Negative); Leukocyte Esterase Negative (Negative); Nitrite Negative (Negative); Urobilinogen 0.2 EU/dL (Up TO 0.2)
--- NOTE | 2021-04-07 15:05 | W.ED.GENAD ---
Discharge Plan Disposition Patient Disposition: HOME Condition: Improving Discharge Details Clinical Impression: Viral syndrome, Headache, Diarrhea Primary Care Provider: Marisol Noble ED Provider: Magaly Sarmiento Discharge Instructions Instructions: Acute Diarrhea (ED), Viral Syndrome (ED), General Headache (ED) Additional Instructions: You are suspected to have a viral infection as this time. This can produce multiple symptoms and is best treated with fluids, rest, motrin, tylenol and other over the counter cough and cold medications. Drink plenty of fluids and get plenty of rest. Alternate tylenol and motrin as needed and directed for pain or fever. Call your primary care doctor's office tomorrow to schedule a follow up appointment in the next few days for re-evaluation and if symptoms persist or worsen, you may need to have a stool sample tested or may need to start antibiotics if your suspected viral infection develops into a bacterial infection. Return immediately to the emergency department with any worsening or new concerning symptoms such as fever, chest pain, worsening shortness of breath, persistent vomiting or any other concerns. Stand Alone Forms: Work Release Discharge Data Discharge Date/Time-TO BE ENTERED AT DEPARTURE: 04/07/21 19:10 Discharge Physician: Magaly Sarmiento Medical Decision Making 45yo M w/ a h/o obesity presents for multiple complaints, sore throat, cough, headache, sob, abdominal pain, diarrhea and fatigue for 2 days. Temp 99 on arrival. He appears generally fatigued but non toxic. Scattered wheezing but no rhonchi. Abdomen obese w/o rigidity or guarding. No meningeal signs. Diff dx includes viral syndrome, covid, pneumonia, colitis, etc. Will place an IV, bolus IVF, IV tylenol, toradol, screening labs, rapid strep, covid swab, ct chest abdomen and pelvis and reassess. Long delay in disposition due to high acuity and high volume in the ED. Labs and imaging reviewed and unremarkable. Normal white blood cell count. Lipase normal. Urinalysis negative for infection. Rapid strep test negative. CT imaging reviewed and negative for acute findings. Patient reassessed and he feels much better and would like to go home. He stated he still had a mild headache and was offered additional IV fluids and food but declined stating he would prefer to go home. Reassessment notes no nuchal rigidity and negative Kernig's and Brudzinski's signs. Abdomen soft and nontender. He appears much more comfortable and nontoxic. Patient was able to ambulate and appeared pleasant and more comfortable. He requested a work note. Advised to follow up with the primary care doctor for re-evaluation. Usual and customary return precautions given prior to discharge. Medical Records Medical records reviewed: Yes I reviewed the patient's medical records. Imaging Data Radiologic Study: Radiologist's impression: CTA Chest With Contrast Exam date and time: 04/07/2021 3:23 PM Age: 45 years old Clinical indication: Chest pressure; Abdominal pain; Other: Cough SOB diffuse abd pain diarrha TECHNIQUE: Imaging protocol: Computed tomographic angiography of the chest with contrast. 3D rendering (Not supervised by radiologist): MIP and/or 3D reconstructed images were created by the technologist. Total images: 3238 Contrast material: IV; Contrast volume: 100 ml; Contrast route: INTRAVENOUS (IV); COMPARISON: CR XR PORTABLE CHEST AP 12/26/2020 11:55 AM FINDINGS: Pulmonary arteries: No central PE. Limited evaluation of the segmental branches. Aorta: Unremarkable. No aortic aneurysm. No aortic dissection. Lungs: There is mosaic attenuation of lower lobes, likely secondary to air trapping/obesity hypoventilation. No consolidation. Pleural spaces: Unremarkable. No pneumothorax. No pleural effusion. Heart: No CT evidence of right heart strain. Lymph nodes: Unremarkable. No enlarged lymph nodes. Bones/joints: Unremarkable. No acute fracture. Soft tissues: Unremarkable. IMPRESSION: No central pulmonary embolism. CT Angiography Abdomen With Contrast Exam date and time: 04/07/2021 3:23 PM Age: 45 years old Clinical indication: Chest pressure; Abdominal pain; Other: Cough SOB diffuse abd pain diarrha TECHNIQUE: Imaging protocol: Computed tomographic angiography images of the abdomen with intravenous contrast material. 3D rendering (Not supervised by radiologist): MIP and/or 3D reconstructed images were created by the technologist. Contrast material: IV; Contrast volume: 100 ml; Contrast route: INTRAVENOUS (IV); COMPARISON: CR XR PORTABLE CHEST AP 12/26/2020 11:55 AM FINDINGS: Aorta: Limited evaluation due to delayed phase of contrast No aortic aneurysm. Celiac trunk and mesenteric arteries: No occlusion or significant stenosis. Renal arteries: No occlusion or significant stenosis. Liver: The liver is diffusely low in attenuation. Gallbladder and bile ducts: Normal. No calcified stones. No ductal dilation. Pancreas: Normal. No ductal dilation. Spleen: Normal. No splenomegaly. Adrenals: Normal. No mass. Kidneys and ureters: Normal. No hydronephrosis. Stomach and bowel: Unremarkable. No obstruction. No mucosal thickening. Lymph nodes: Unremarkable. No enlarged lymph nodes. Intraperitoneal space: Unremarkable. No free air. No significant fluid collection. Bones/joints: Unremarkable. No acute fracture. No dislocation. Soft tissues: Unremarkable. Other findings: Evaluation of the solid organs is limited by delayed phase of contrast. IMPRESSION: 1. Limited evaluation of the solid organs and aorta. No aortic aneurysm. 2. No acute disease in abdomen or pelvis. Lab Data Lab results reviewed: Yes I reviewed the patient's lab results. Labs: 04/07/21 15:40 Tonsil - Not Specified Group A Streptococcus Culture - Pending Laboratory Tests Range/Units 04/07/21 04/07/21 04/07/21 14:50 15:50 15:50 WBC (4.4-10.8) 10^3/uL 10.47 RBC (4.36-5.78) 10^6/uL 5.29 Hgb (13.5-17.5) g/dL 15.3 Hct (40.0-50.0) % 46.5 MCV (80-95) fL 87.9 MCH (27.0-33.0) pg 28.9 MCHC (32.0-36.0) % 32.9 RDW (11.8-14.1) % 13.2 Plt Count (130-400) 10^3/uL 222 MPV (8.0-11.0) fL 12.0 H Immature Gran % 0.3 Neutrophils % 62.9 Lymphocytes % 25.6 Monocytes % 7.2 Eosinophils % 3.2 Basophils % 0.8 Nucleated RBC % % 0 Absolute Neutrophils (1.2-6.7) 10^3/uL 6.60 Absolute Lymphocytes (1.2-3.4) 10^3/uL 2.68 Absolute Monocytes (0.1-0.8) 10^3/uL 0.75 Absolute Eosinophils (0.0-0.7) 10^3/uL 0.33 Absolute Basophils (0.0-0.2) 10^3/uL 0.08 Sodium (136-145) mmol/L 142 Potassium (3.5-5.1) mmol/L 3.6 Chloride (98-107) mmol/L 103 Carbon Dioxide (21.0-32.0) mmol/L 32.4 H Anion Gap (3-11) mmol/L 6.6 BUN (7-18) mg/dL 10 Creatinine (0.70-1.30) mg/dL 0.7 Estimated GFR/1.73 m2 (mL/min/1.73m2) >= 60.00 Glucose (74-106) mg/dL 82 Calcium (8.5-10.1) mg/dL 8.7 Total Bilirubin (0.2-1.0) mg/dL 0.9 AST (15-37) U/L 13 L ALT (16-63) U/L 29 Alkaline Phosphatase (46-116) U/L 64 Total Protein (6.4-8.2) g/dL 7.4 Albumin (3.4-5.0) g/dL 3.4 Lipase (73-393) U/L 82 Urine Color (Yellow) Yellow Urine Clarity (Clear) Clear Urine pH (5-8) 6.0 Ur Specific [place] (1.005-1.025) 1.020 Urine Protein (Negative) mg/dL Negative Urine Ketones (Negative) mg/dL Negative Urine Blood (Negative) Small H Urine Nitrite (Negative) Negative Urine Bilirubin (Negative) Negative Urine Urobilinogen (Up TO 0.2) EU/dL 0.2 Ur Leukocyte Esterase (Negative) Negative Urine RBC (0-2) HPF 0-2 Urine WBC (0-5) HPF Negative Ur Epithelial Cells (Negative) HPF Few Urine Crystals (Negative) HPF Negative Urine Bacteria (Negative) HPF Rare Urine Casts (Negative) LPF Negative Urine Mucus (Negative) Negative Urine Other (Negative) Negative Ur Culture Indicated? No Urine Glucose (Negative) mg/dL Negative HPI General Mode of arrival: ambulatory. Date/Time Provider Initiated Documentation: 04/07/21 15:02. Limitations to Documentation: no limitations. Information obtained by: patient. HPI Narrative: Pt is a 45yo M w/ a h/o obesity who presents to the ED w/ multiple complaints since yesterday, most specifically sore throat, headache, diarrhea and abdominal pain. Pt states he has had a cough with occasional white sputum production and sore throat over the past few days. He states he has felt tired since yesterday and then last night developed nausea and diffuse headache. He states today he has had 6 episodes of watery brown diarrhea. He also admits to decreased appetite recently and states he has not been sleeping well. He states he was started on a new mood stabilizing medication for his depression 1 month ago but he does not know the name. He smokes daily and drinks alcohol occasionally but denies any recent heavy alcohol use or any drug use. He states he is fully vaccinated and denies any recent known exposure to COVID. He states he has occasional shortness of breath but denies any chest pain or known fever. He states his abdominal pain is not tender but just feels achy everywhere. Related Data Allergies Allergy/AdvReac Type Severity Reaction Status Date / Time No Known Allergies Allergy Unverified 12/26/20 10:49 General Stated Complaint: Abd Prob MICHAEL: 3 Review of Systems All systems reviewed & are unremarkable except as noted in HPI and below Constitutional Constitutional: Reports as per HPI, Denies chills, Reports fatigue, Denies fever(s), Reports headache(s), Reports malaise and Reports poor appetite Eyes Eyes: Denies blurry vision ENT Ears, Nose, Mouth, and Throat: Denies dizziness, Reports headache(s), Reports sore throat and Denies throat swelling Cardiovascular Cardiovascular: Denies chest pain and Reports dyspnea Respiratory Respiratory: Reports cough and Reports dyspnea Gastrointestinal Gastrointestinal: Denies abdominal pain, Reports diarrhea, Reports nausea and Denies vomiting Genitourinary Genitourinary: Denies hematuria and Denies dysuria Musculoskeletal Musculoskeletal: Denies back pain and Denies numbness Integumentary/Breasts Skin/Breast: Denies lesions and Denies rash Neurologic Neurologic: Denies dizziness, Reports headache(s), Denies localized weakness and Denies numbness Endocrine Endocrine: Reports fatigue Allergic/Immunologic Allergic/Immunologic: Denies throat swelling [facility] Medical History (Updated 04/07/21 @ 18:57 by Magaly Sarmiento DO) Depression Obesity Surgical History (Updated 04/07/21 @ 15:28 by Magayl Sarmiento DO) No significant past surgical history Social History Smoking/Tobacco Use Status: Current every day Tobacco Type: cigarettes Smoking risk assessment performed?: Yes Alcohol Intake: current Alcohol Intake frequency: holidays/special occasions only Drug use: Never Substance use type: does not use Do you feel safe at home: Yes Do you feel safe in your relationship?: Yes Exam Const General: cooperative and no acute distress HENMT Head: normal to inspection Ears: hearing grossly normal bilaterally, external ears normal and TM's normal bilaterally Face and sinus: normal facial exam Mouth: oral mucosae normal Throat: posterior oropharynx normal, tonsils normal, uvula midline and no peritonsillar masses Eyes General: appearance normal, both eyes and all related structures Pupils: PERRL EOM: EOM intact bilaterally Neck Neck: normal visual inspection and No submandibular swelling Lymphatic: no lymphadenopathy noted Chest Chest: normal inspection of the chest and no tenderness Resp Effort & Inspection: normal respiratory effort and able to speak in complete sentences Auscultation: wheezes scattered wheezes Cardio Rate: regular rate Rhythm: regular rhythm GI Inspection: normal to inspection and obesity Palpation: soft, not firm, not rigid and nontender Auscultation: normal bowel sounds Skin General skin exam: no rashes or lesions noted Neuro General: patient alert, patient awake, patient oriented x3, moves all extremities, no meningeal signs and no focal motor deficits Cranial Nerves: CN's II-XI intact bilaterally Cognition: normal cognition Speech: speech normal Motor: muscle tone normal throughout Sensory Exam: no sensory deficits noted Extrem General: normal to inspection, full ROM, capillary refill normal, no calf tenderness bilaterally and no edema Psych Appearance: grossly normal Mental Status: mental status grossly normal Speech and Movement: speech and movement normal Affect: normal affect Course Vital Signs Vital signs: Vital Signs Temperature 99.0 F 04/07/21 14:41 Pulse 83 04/07/21 14:41 Respiratory Rate 16 04/07/21 14:41 Blood Pressure 149/89 H 04/07/21 14:41 Pulse Oximetry 98 04/07/21 14:41 Temperature 99.0 F 04/07/21 14:41 Temperature Source Temporal Artery Scan 04/07/21 14:41 Pulse 83 04/07/21 14:41 Respiratory Rate 16 04/07/21 14:41 Blood Pressure 149/89 H 04/07/21 14:41 Pulse Oximetry 98 04/07/21 14:41 Oxygen Delivery Method Room Air 04/07/21 14:41 Oxygen Flow Rate 0 04/07/21 14:41 Pain Level 3 04/07/21 14:41 Lab/Test Results Lab/Test Results: Laboratory Tests Range/Units 04/07/21 14:50 Urine Color (Yellow) Yellow Urine Clarity (Clear) Clear Urine pH (5-8) 6.0 Ur Specific [place] (1.005-1.025) 1.020 Urine Protein (Negative) mg/dL Negative Urine Ketones (Negative) mg/dL Negative Urine Blood (Negative) Small H Urine Nitrite (Negative) Negative Urine Bilirubin (Negative) Negative Urine Urobilinogen (Up TO 0.2) EU/dL 0.2 Ur Leukocyte Esterase (Negative) Negative Urine Glucose (Negative) mg/dL Negative
[2021-04-07 15:12] LABS: Bacteria Rare HPF (Negative); C & S Indicated? No; Casts Negative LPF (Negative); Crystals Negative HPF (Negative); Epithelial Cells Few HPF (Negative); Mucus Negative (Negative); Other Cells Negative (Negative); RBC 0-2 HPF (0-2); WBC Negative HPF (0-5)
--- NOTE | 2021-04-07 15:15 | DI.CT_ITS ---
Exam(s) CT CHEST PE ABD PELVIS W EXAM: CT CHEST PE ABD PELVIS W CLINICAL HISTORY: cough, sob, diffuse abd pain, diarrhea. TECHNIQUE: Imaging Protocol: Axial CT angiography was performed with multi-slice acquisition and mu lti-planar and/or 3D reconstructions. CONTRAST MATERIAL: Intravenous: Omnipaque 350 Contrast volume:100 ml COMPARISON: CR XR PORTABLE CHEST AP from 12/26/2020 CR XR PORTABLE CHEST AP from 12/26/2020 FINDINGS: CHEST: Exam is limited by the patient's body habitus. There is respiratory motion greater at the lung bases . Pulmonary Arteries: No evidence of filling defect to suggest pulmonary emboli. Limited visualization of branch vessels. Tracheobronchial tree: Patent where visualized. Mediastinum and Faye: No dominant adenopathy or fluid collection. Pulmonary parenchyma: Expiratory changes. No consolidation or dominant measurable mass. No data architect ural distortion. Pleura: No effusion or pneumothorax. Heart: The heart is not dilated. No coronary artery calcifications are seen. Aorta: Thoracic aorta non-dilated. Bones: Mild degenerative changes. ABDOMEN: Liver: Enlarged. Hepatic steatosis.. No measurable mass. Portal, Superior Mesenteric, and Splenic Veins: Unremarkable. Gallbladder and Biliary Tract: No radiodense calculus or dilation. Pancreas: Normal density, no abnormal calcifications or inflammatory process. Spleen: Normal. Adrenals: No masses seen. Kidneys: Normal size, contour and axis. No radiodense stones or obstructive uropathy. No masses seen. Abdominal Aorta: Abdominal portion non-dilated. Bowel: No obstruction or bowel wall thickening. Appendix is unremarkable. Normal quantity of stool. Peritoneal Cavity: No ascites, collection or mesenteric inflammatory response. Lymph Nodes: Within normal limits. Bones: Unremarkable. Soft Tissues: Unremarkable. PELVIS: Bladder: Symmetric distention, no gross wall thickening. Reproductive Organs: Unremarkable as visualized. Lymph Nodes: Within normal limits. Bones: Within normal limits. IMPRESSION: 1. No evidence of pulmonary embolism. 2. No acute abdominal or pelvic process. RADIATION DOSE DELIVERED: 2,615.57mGy.cm Total DLP DATA REPOSITORY: All CT scans at this facility are submitted to the National Radiology Data Registry (NRDR) Dose Index Registry (DIR) with the [employer] (ACR). RADIATION OPTIMIZATION: All CT scans at this facility use at least one of these dose optimization te chniques: automated exposure control; mA and/or kV adjustment per patient size (includes targeted exa ms where dose is matched to clinical indication); or iterative reconstruction.
[2021-04-07] MEDS: ACETAMINOPHEN 1,000 MG/100 ML BTL 400 MG IVPB (15:49)
[2021-04-07] MEDS: Ketorolac 30 MG/ML VIAL IVP (15:50)
[2021-04-07] MEDS: Normal Saline Flush 10 ML SYR IVP (15:51)
[2021-04-07] MEDS: Normal Saline 1,000 ML 1000 ML IV (16:03)
[2021-04-07 16:21] LABS: Abs Immature Grans 0.03 10^3/uL (0.0-0.06); Absolute Basophil Count 0.08 10^3/uL (0.0-0.2); Absolute Eosinophil Count 0.33 10^3/uL (0.0-0.7); Absolute Lymphocyte Count 2.68 10^3/uL (1.2-3.4); Absolute Monocyte Count 0.75 10^3/uL (0.1-0.8); Basophils % 0.8; Eosinophils % 3.2; HCT 46.5 % (40.0-50.0); HGB 15.3 g/dL (13.5-17.5); Immature Grans % 0.3; Lymphocytes % 25.6; MCH 28.9 pg (27.0-33.0); MCHC 32.9 % (32.0-36.0); MCV 87.9 fL (80-95); Monocytes % 7.2; Neutrophils % 62.9; Nucleated RBC 0 %; Platelet Count 222 10^3/uL (130-400); RBC 5.29 10^6/uL (4.36-5.78); RDW 13.2 % (11.8-14.1); RDW-SD 42.6 fL; WBC 10.47 10^3/uL (4.4-10.8)
[2021-04-07 16:37] LABS: ALT 29 U/L (16-63); AST 13 U/L (15-37); Albumin 3.4 g/dL (3.4-5.0); Alkaline Phosphatase 64 U/L (46-116); Anion Gap 6.6 mmol/L (3-11); BUN 10 mg/dL (7-18); Bilirubin, Total 0.9 mg/dL (0.2-1.0); CO2 32.4 mmol/L (21.0-32.0); CREATININE 0.7 mg/dL (0.70-1.30); Calcium 8.7 mg/dL (8.5-10.1); Chloride 103 mmol/L (98-107); Glucose 82 mg/dL (74-106); Lipase 82 U/L (73-393); Potassium 3.6 mmol/L (3.5-5.1); Sodium 142 mmol/L (136-145); Total Protein 7.4 g/dL (6.4-8.2)
[2021-04-07] MEDS: Normal Saline - Diluent 50 ML VIAL IV (16:58)
[2021-04-07] MEDS: Omnipaque 350 MG/ML 100 ML BTL IJ (16:58)
[2021-04-07 17:06] VITALS: BP 131/74; PULSE 69; RESP 18; TEMP 36.6; O2SAT 95
--- NOTE | 2021-04-07 17:43 | DI.VRAD_ITS ---
PROCEDURE INFORMATION: Exam: CTA Chest With Contrast Exam date and time: 04/07/2021 3:23 PM Age: 45 years old Clinical indication: Chest pressure; Abdominal pain; Other: Cough SOB diffuse abd pain diarrha TECHNIQUE: Imaging protocol: Computed tomographic angiography of the chest with contrast. 3D rendering (Not supervised by radiologist): MIP and/or 3D reconstructed images were created by the technologist. Total images: 3238 Contrast material: IV; Contrast volume: 100 ml; Contrast route: INTRAVENOUS (IV); COMPARISON: CR XR PORTABLE CHEST AP 12/26/2020 11:55 AM FINDINGS: Pulmonary arteries: No central PE. Limited evaluation of the segmental branches. Aorta: Unremarkable. No aortic aneurysm. No aortic dissection. Lungs: There is mosaic attenuation of lower lobes, likely secondary to air trapping/obesity hypoventilation. No consolidation. Pleural spaces: Unremarkable. No pneumothorax. No pleural effusion. Heart: No CT evidence of right heart strain. Lymph nodes: Unremarkable. No enlarged lymph nodes. Bones/joints: Unremarkable. No acute fracture. Soft tissues: Unremarkable. IMPRESSION: No central pulmonary embolism. PROCEDURE INFORMATION: Exam: CT Angiography Abdomen With Contrast Exam date and time: 04/07/2021 3:23 PM Age: 45 years old Clinical indication: Chest pressure; Abdominal pain; Other: Cough SOB diffuse abd pain diarrha TECHNIQUE: Imaging protocol: Computed tomographic angiography images of the abdomen with intravenous contrast material. 3D rendering (Not supervised by radiologist): MIP and/or 3D reconstructed images were created by the technologist. Contrast material: IV; Contrast volume: 100 ml; Contrast route: INTRAVENOUS (IV); COMPARISON: CR XR PORTABLE CHEST AP 12/26/2020 11:55 AM FINDINGS: Aorta: Limited evaluation due to delayed phase of contrast No aortic aneurysm. Celiac trunk and mesenteric arteries: No occlusion or significant stenosis. Renal arteries: No occlusion or significant stenosis. Liver: The liver is diffusely low in attenuation. Gallbladder and bile ducts: Normal. No calcified stones. No ductal dilation. Pancreas: Normal. No ductal dilation. Spleen: Normal. No splenomegaly. Adrenals: Normal. No mass. Kidneys and ureters: Normal. No hydronephrosis. Stomach and bowel: Unremarkable. No obstruction. No mucosal thickening. Lymph nodes: Unremarkable. No enlarged lymph nodes. Intraperitoneal space: Unremarkable. No free air. No significant fluid collection. Bones/joints: Unremarkable. No acute fracture. No dislocation. Soft tissues: Unremarkable. Other findings: Evaluation of the solid organs is limited by delayed phase of contrast. IMPRESSION: 1. Limited evaluation of the solid organs and aorta. No aortic aneurysm. 2. No acute disease in abdomen or pelvis. Dictated and Authenticated by: Chris Vicente MD. Ordering:TOLU Mckenzie MD
[2021-04-07 19:10] VITALS: BP 131/74; PULSE 69; RESP 18; TEMP 36.6; O2SAT 95
[2021-04-09 14:12] LABS: COVID-19 RT-PCR UVMMC Result Negative (Negative)
--- NOTE | 2021-04-10 07:47 | NUR.NOTE ---
Given Negative Covid test result--verbalizes understanding.Nursing Note:
== END 2021-04-07 19:10 | disposition home or self-care (01) ==
PROVIDERS: Emergency Provider Physician Assistant; PCP Nurse Practitioner Family
DX: R51.9 Headache, unspecified (principal); R19.7 Diarrhea, unspecified; B34.9 Viral infection, unspecified; Z20.822 Contact with and (suspected) exposure to COVID-19
CPT/HCPCS: 71275; 74177; 80053; 83690; 87880; 96361; 96374; 96375; 99285; U0003; 81003; 81015; 85025; 87081; 99284; J0131; J1885; J3490

== ENCOUNTER 2021-11-26 09:21 | Emergency (ER) | payer MEDICAID, SELFPAY ==
--- NOTE | 2021-11-26 09:30 | RT.EKG_ITS ---
APPROVED REPORT Exam: Resting ECG Reason for Exam: sob Patient Location: E HR:74 bpm ECG Measurements Heart Rate 74 AXIS IN 188 P 27 QRSd 98 QRS -16 QT 380 T 2 QTc 422 Conclusion Sinus rhythm...normal P axis, V-rate 60- 99 Q >30mS in V2-V5 no stemi
[2021-11-26 09:37] VITALS: BP 140/85; PULSE 82; RESP 20; TEMP 36.9; O2SAT 95
[2021-11-26 10:09] VITALS: RESP 16
--- NOTE | 2021-11-26 10:15 | DI.RAD_ITS ---
Exam(s) XR SHOULDER RT COMPLETE 2+V EXAM: XR SHOULDER RT COMPLETE 2+V CLINICAL HISTORY: fall, pain TECHNIQUE: COMPARISON: No exams were available for comparison FINDINGS: Four views were obtained. There are mild degenerative changes of acromioclavicular and glenohumeral joints. There is no evidence of acute fracture or dislocation. IMPRESSION: RADIATION DOSE DELIVERED: Total DLP
--- NOTE | 2021-11-26 10:15 | DI.RAD_ITS ---
Exam(s) XR HIP LT COMPLETE AP PELVIS EXAM: XR HIP LT COMPLETE AP PELVIS CLINICAL HISTORY: fall, pain TECHNIQUE: COMPARISON: No exams were available for comparison FINDINGS: Three views were obtained. There are mild degenerative changes of both hips and SI joints. There is no evidence of acute fracture or dislocation. IMPRESSION: RADIATION DOSE DELIVERED: Total DLP
[2021-11-26 10:40] LABS: Abs Immature Grans 0.01 10^3/uL (0.0-0.06); Absolute Basophil Count 0.08 10^3/uL (0.0-0.2); Absolute Eosinophil Count 0.25 10^3/uL (0.0-0.7); Absolute Lymphocyte Count 2.32 10^3/uL (1.2-3.4); Absolute Monocyte Count 0.52 10^3/uL (0.1-0.8); Absolute Neutrophil Count 4.86 10^3/uL (1.2-6.7); Eosinophils % 3.1; HCT 47.6 % (40.0-50.0); HGB 15.5 g/dL (13.5-17.5); Immature Grans % 0.1; Lymphocytes % 28.9; MCH 28.8 pg (27.0-33.0); MCHC 32.6 % (32.0-36.0); MCV 88.5 fL (80-95); MPV 12.2 fL (8.0-11.0); Monocytes % 6.5; Neutrophils % 60.4; Nucleated RBC 0 %; Platelet Count 225 10^3/uL (130-400); RBC 5.38 10^6/uL (4.36-5.78); RDW 13.2 % (11.8-14.1); WBC 8.04 10^3/uL (4.4-10.8)
[2021-11-26 10:59] LABS: ALT 21 U/L (16-63); AST 14 U/L (15-37); Albumin 3.4 g/dL (3.4-5.0); Alkaline Phosphatase 62 U/L (46-116); BUN 11 mg/dL (7-18); Bilirubin, Total 0.9 mg/dL (0.2-1.0); CREATININE 0.7 mg/dL (0.70-1.30); Calcium 8.4 mg/dL (8.5-10.1); Chloride 105 mmol/L (98-107); Glucose 95 mg/dL (74-106); Magnesium 2.3 mg/dL (1.8-2.4); NT-proBNP 26 pg/mL (<300); Potassium 4.3 mmol/L (3.5-5.1); Sodium 141 mmol/L (136-145); Total Protein 7.4 g/dL (6.4-8.2); Troponin I < 50 ng/L (<or=60)
--- NOTE | 2021-11-26 11:30 | DI.RAD_ITS ---
Exam(s) XR CHEST 2V PA LATERAL EXAM: XR CHEST 2V PA LATERAL CLINICAL HISTORY: cough TECHNIQUE: 2D digital imaging was performed. COMPARISON: CR XR PORTABLE CHEST AP from 12/26/2020 FINDINGS: The heart is not enlarged. The lungs are clear and well expanded. No pleural effusion seen. Mediastin al contours appear intact. IMPRESSION: Normal chest. RADIATION DOSE DELIVERED: Total DLP
--- NOTE | 2021-11-26 12:50 | ED.GENADUL_ITS ---
Discharge Plan Disposition Patient Disposition: HOME Condition: Stable Discharge Details Clinical Impression: Fall, Contusion of right shoulder, Contusion of hip, left, Anxiety, Shortness of breath, Cough Primary Care Provider: Marisol Noble ED Provider: Olegario Vidales Home Meds and New Rx's Prescriptions: No Action No Known Home Meds 0RF Discharge Instructions Instructions: Contusion in Adults (ED), Anxiety (ED), Acute Cough (ED) Additional Instructions: Please contact your primary care physician to arrange follow-up. Return to the ER immediately for any worsening or new concerning symptoms. Referrals: Marisol Noble [Primary Care Provider] - Discharge Data Discharge Date/Time-TO BE ENTERED AT DEPARTURE: 11/26/21 14:37 Medical Decision Making 46-year-old male with history of hypertension and anxiety disorder, here with shortness of breath of the past 2 days, worse lying flat, associated cough over the past week. No chest pain. No leg swelling or calf tenderness. Vitals are reassuring. Lungs clear to auscultation bilaterally. Cardiac exam is unremarkable. Patient is concerned for potential pneumonia. Screening EKG was reviewed interpreted by me: Nondiagnostic, normal sinus rhythm, please see report. Considered pneumonia. Chest x-ray was reviewed interpreted by radiology: No acute cardiopulmonary disease. Labs reviewed and no leukocytosis. Consider CHF given shortness of breath and worsening symptoms lying flat. BNP is normal. Troponin normal. Covid testing I considered Covid and rapid Covid testing is negative. Patient also with mechanical trip and fall downstairs earlier this morning and sustained injury to his left hip/buttock and right lateral shoulder. No head injury, neck injury, back injury, abdominal injury or chest injury. Considered fracture of right shoulder and left hip. X-rays of the right shoulder and left hip and pelvis were obtained and reviewed by radiology and negative for acute injury. I suspect he has contusions of the shoulder and buttock/hip. Plan for discharge with close outpatient follow-up with his primary care physician. All results were discussed with the patient. Discharge plan discussed with the patient as he is in agreement and understands importance of timely follow-up and need to return should any worsening or new concerning symptoms. Patient no noting that he recently had a disagreement with his boss and thinks that stress may be contributing and that symptoms are related to his anxiety disorder and recent stressors. Disposition decision was made weighing the risks and benefits of hospitalization versus outpatient treatment, the risk for further decompensation, and the pa tient's wishes. The patient was stable and requested discharge. Prior to discharge, my usual and customary return precautions were reviewed with the patient - this included follow-up instructions and reason to return to the emergency department if condition worsens, does not improve as expected, or other new concerns arise. HPI General Mode of arrival: ambulatory . Date/Time Provider Initiated Documentation: 11/26/21 09:38 . Limitations to Documentation: no limitations . Information obtained by: patient . HPI Narrative: 46-year-old male with history of depression, anxiety and hypertension presents with chief complaint of shortness of breath. Patient notes shortness of breath has been present for the past 2 days, persistent, worse lying flat which he attributes to his obesity. He has no associated chest pain. No leg swelling or calf tenderness. Patient does note associated cough over the past week or so. Cough is intermittently productive. No associated fever. Patient does state he is vaccinated against Covid but has not had booster. Patient also notes that he had a mechanical trip and fall downstairs earlier today. He notes he protected his body during the fall but did impact his left hip as well as right upper arm and shoulder. He has pain in both of these areas that is worse with movement. Patient sustained no head trauma and has no headac he or neck pain. No trauma to his neck or back. No trauma to his chest or abdomen. Related Data Home Medications Medication Instructions Recorded Confirmed Unknown [No Known Home Meds] 11/26/21 11/26/21 Allergies Allergy/AdvReac Type Severity Reaction Status Date / Time No Known Allergies Allergy Unverified 11/26/21 09:43 General Stated Complaint: GenMedical MICHAEL: 3 Review of Systems All systems reviewed & are unremarkable except as noted in HPI and below Constitutional Constitutional: Denies fever(s) Cardiovascular Cardiovascular: Denies chest pain Respiratory Respiratory: Reports cough Gastrointestinal Gastrointestinal: Denies abdominal pain Musculoskeletal Musculoskeletal: Reports as per HPI PFSH All Active Problems (Updated 11/26/21 @ 13:54 by Olegario Vidales MD) Viral syndrome (Acute) Headache (Acute) Diarrhea (Acute) Fall (Acute) Contusion of right shoulder (Acute) Contusion of hip, left (Acute) Anxiety (Chronic) Shortness of breath (Acute) Cough (Acute) Acute bronchitis with bronchospasm (Acute) Acute viral syndrome (Acute) Cellulitis of right leg (Acute) Internal derangement of left knee (Acute 01/31/18) Medical History Depression Obesity Surgical History No significant past surgical history Social History Smoking/Tobacco Use Status: Current every day Tobacco Type: cigarettes Smoking risk assessment performed?: Yes Alcohol Intake: current Alcohol Intake frequency: holidays/special occasions only Drug use: Never Substance use type: does not use Do you feel safe at home: Yes Do you feel safe in your relationship?: Yes Exam Const General: cooperative and no acute distress HENMT Head: normocephalic and atraumatic Mouth: moist mucous membranes Eyes Conjunctivae: normal conjunctivae Sclera: normal sclerae EOM: EOM intact bilaterally Neck Neck: full ROM, supple and nontender Resp Auscultation: clear to auscultation bilaterally, no rales, no rhonchi and no wheezes Cardio Jugular venous pressure: no JVD Rate: regular rate and not tachycardic Rhythm: regular rhythm GI Palpation: soft, not firm, no guarding, no masses, not rigid and nontender Back/Spine/Pelvis Thoracic/Lumbar Spine: thoracic and lumbar spine normal to inspection, No thoracic spinal tenderness and No lumbar spinal tenderness Skin General skin exam: no rashes or lesions noted Neuro General: patient alert, patient awake, patient oriented x3 and tone normal Extrem General: no calf tenderness and no edema Right upper extremity: shoulder/upper arm Details: tenderness Location: of the proximal humerus, axillary nerve sensory function normal and abnormal ROM Details: pain with active ROM Details: in ABduction; Negative for no swelling and no ecchymosis Left lower extremity: hip/thigh Details: tenderness Location: of the hip Location: posteriorly; Negative for no swelling Psych Appearance: grossly normal Mental Status: mental status grossly normal Speech and Movement: speech and movement normal Course Vital Signs Vital signs: Vital Signs Temperature 36.9 C 11/26/21 09:37 Pulse 82 11/26/21 09:37 Respiratory Rate 20 11/26/21 09:37 Blood Pressure 140/85 11/26/21 09:37 Pulse Oximetry 95 03/02/22 09:37 Temperature 36.9 C 11/26/21 09:37 Temperature Source Skin 11/26/21 09:37 Pulse 82 11/26/21 09:37 Respiratory Rate 16 11/26/21 10:09 Respiratory Effort 11/26/21 10:09 Respiratory Depth Normal 11/26/21 10:09 Respiratory Pattern Normal 11/26/21 10:09 Blood Pressure 140/85 11/26/21 09:37 Blood Pressure Position Sitting 11/26/21 09:37 Pulse Oximetry 95 11/26/21 09:37 Oxygen Delivery Method Room Air 11/26/21 09:37 Oxygen Flow Rate 0 11/26/21 09:37 Pain Level 6 11/26/21 09:37 Comment 11/26/21 09:37 Lab/Test Results Lab/Test Results: Laboratory Tests Range/Units 11/26/21 11/26/21 10:20 10:20 WBC (4.4-10.8) 10^3/uL 8.04 RBC (4.36-5.78) 10^6/uL 5.38 Hgb (13.5-17.5) g/dL 15.5 Hct (40.0-50.0) % 47.6 MCV (80-95) fL 88.5 MCH (27.0-33.0) pg 28.8 MCHC (32.0-36.0) % 32.6 RDW (11.8-14.1) % 13.2 Plt Count (130-400) 10^3/uL 225 MPV (8.0-11.0) fL 12.2 H Immature Gran % 0.1 Neutrophils % 60.4 Lymphocytes % 28.9 Monocytes % 6.5 Eosinophils % 3.1 Basophils % 1.0 Nucleated RBC % % 0 Absolute Neutrophils (1.2-6.7) 10^3/uL 4.86 Absolute Lymphocytes (1.2-3.4) 10^3/uL 2.32 Absolute Monocytes (0.1-0.8) 10^3/uL 0.52 Absolute Eosinophils (0.0-0.7) 10^3/uL 0.25 Absolute Basophils (0.0-0.2) 10^3/uL 0.08 Sodium (136-145) mmol/L 141 Potassium (3.5-5.1) mmol/L 4.3 Chloride (98-107) mmol/L 105 Carbon Dioxide (21.0-32.0) mmol/L 30.0 Anion Gap (3-11) mmol/L 6.0 BUN (7-18) mg/dL 11 Creatinine (0.70-1.30) mg/dL 0.7 Estimated GFR/1.73 m2 (mL/min/1.73m2) >= 60.00 Glucose (74-106) mg/dL 95 Calcium (8.5-10.1) mg/dL 8.4 L Magnesium (1.8-2.4) mg/dL 2.3 Total Bilirubin (0.2-1.0) mg/dL 0.9 AST (15-37) U/L 14 L ALT (16-63) U/L 21 Alkaline Phosphatase (46-116) U/L 62 Troponin I (<or=60) ng/L < 50 NT-Pro-B Natriuret Pep (<300) pg/mL 26 Total Protein (6.4-8.2) g/dL 7.4 Albumin (3.4-5.0) g/dL 3.4
[2021-11-26 13:02] LABS: COVID-19 PCR Negative (Negative); Influenza A PCR Negative (Negative); Influenza B PCR Negative (Negative); RSV PCR Negative (Negative)
[2021-11-26 13:07] LABS: Source Nasopharynx
[2021-11-26 13:44] VITALS: BP 140/88; PULSE 70; RESP 12; TEMP 36.4; O2SAT 95
== END 2021-11-26 14:37 | disposition home or self-care (01) ==
PROVIDERS: Emergency Provider Student in an Organized Health Care Education/Training Program; PCP Nurse Practitioner Family
DX: S40.011A Contusion of right shoulder, initial encounter (principal); S70.02XA Contusion of left hip, initial encounter; F41.9 Anxiety disorder, unspecified; R06.02 Shortness of breath; R05.1 Acute cough; F17.210 Nicotine dependence, cigarettes, uncomplicated
CPT/HCPCS: 36415; 80053; 87637; 93005; 99284; 71046; 73030; 73502; 83735; 83880; 84484; 85025; 93010

== ENCOUNTER 2022-01-29 13:59 | Emergency (ER) | payer MEDICAID, SELFPAY ==
[2022-01-29 14:28] VITALS: BP 154/95; PULSE 75; RESP 16; TEMP 36.7; O2SAT 95
--- NOTE | 2022-01-29 16:04 | DI.RAD_ITS ---
Exam(s) XR CHEST 2V PA LATERAL EXAM: XR CHEST 2V PA LATERAL CLINICAL HISTORY: sob, r/o acute disease TECHNIQUE: 2D digital imaging was performed. COMPARISON: CR XR CHEST 2V PA LATERAL from 11/26/2021 FINDINGS: The heart is not enlarged. The lungs are clear and well expanded. No pleural effusion seen. Mediastin al contours appear intact. IMPRESSION: Normal chest. RADIATION DOSE DELIVERED: Total DLP
[2022-01-29 16:31] LABS: COVID-19 PCR Negative (Negative); Influenza A PCR Negative (Negative); Influenza B PCR Negative (Negative); RSV PCR Negative (Negative)
[2022-01-29 16:33] LABS: Source Nasopharynx
--- NOTE | 2022-01-29 16:53 | ED.GENADUL_ITS ---
Discharge Plan Disposition Patient Disposition: HOME Discharge Details Clinical Impression: Viral syndrome Primary Care Provider: Marisol Noble ED Provider: Harshal Silva Home Meds and New Rx's Prescriptions: No Action bupropion HCl 150 mg tablet extended release 24 hr 150 mg PO DAILY 0RF Label Comments: TAKE 1 TABLET BY MOUTH EVERY DAY FOR 2 WEEKS THEN INCREASE TO 2 TABLETS ONCE A DAY Discharge Instructions Instructions: Viral Syndrome (ED) Additional Instructions: Drink plenty of fluids. You may take Tylenol or Motrin for pain. Follow-up with Stand Alone Forms: Work Release Discharge Data Discharge Date/Time-TO BE ENTERED AT DEPARTURE: 01/29/22 18:45 Medical Decision Making Patient presents with symptoms consistent with viral infection, versus heat exhaustion. COVID-negative influenza negative. Chest x-ray negative. Results reviewed with patient. Treatment plan reviewed with patient. HPI General Date/Time Provider Initiated Documentation: 01/29/22 14:54 . HPI Narrative: 46-year-old presents to the emergency department for evaluation of myalgias arthralgias x2 days. He states he has a mild headache that has defervesced on its own. He believes that he is at increased cough. Vomited once this morning. States that he is retired. He thought he was having to be in a panic attack yesterday at work. He has noticed a dark yellow urine although he has been drinking 2 L of fluids a day. 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 Alleviating factors are rest and p.o. fluids. Associated hydrocephalus. Does not recall any fevers. No chest pain. Related Data Home Medications Medication Instructions Recorded Confirmed bupropion HCl 150 mg 24 hr tablet, 150 mg PO DAILY 01/29/22 01/29/22 extended release Allergies Allergy/AdvReac Type Severity Reaction Status Date / Time No Known Allergies Allergy Unverified 01/29/22 14:32 General Stated Complaint: GenMedical MICHAEL: 3 Review of Systems Narrative: Constitutional negative for fevers and chills. Positive for malaise and fatigue HEENT negative. No sore throat. Respiratory: Mild shortness of breath secondary to COPD and tobacco abuse Cardiovascular no chest pain. GI resolved nausea. 1 episode of vomiting this morning. No abdominal pain or diarrhea see HPI MSK see HPI Skin intact negative Neuro resolved headache Heme-negative PFSH All Active Problems (Updated 01/29/22 @ 17:02 by Harshal Silva MD) Viral syndrome (Acute) Headache (Acute) Diarrhea (Acute) Acute bronchitis with bronchospasm (Acute) Acute viral syndrome (Acute) Cellulitis of right leg (Acute) Internal derangement of left knee (Acute 01/31/18) Medical History Depression Obesity Surgical History No significant past surgical history Social History Smoking/Tobacco Use Status: Current every day Tobacco Type: cigarettes Smoking risk assessment performed?: Yes Alcohol Intake: current Alcohol Intake frequency: holidays/special occasions only Drug use: Never Substance use type: does not use Do you feel safe at home: Yes Do you feel safe in your relationship?: Yes Exam Narrative Exam Narrative: Const General:?cooperative and no acute distress, obese HENMT Head:?normocephalic and atraumatic Mouth:?moist mucous membranes Eyes Conjunctivae:?normal conjunctivae Sclera:?normal sclerae EOM:?EOM intact bilaterally Neck Neck:?full ROM, supple and nontender Resp Auscultation:?clear to auscultation bilaterally, no rales, no rhonchi and no wheezes Cardio Jugular venous pressure:?no JVD Rate:?regular rate and not tachycardic Rhythm:?regular rhythm GI Palpation:?soft, not firm, no guarding, no masses, not rigid and nontender Skin General skin exam:?no rashes or lesions noted Neuro General:?patient alert, patient awake, patient oriented x3 and tone normal Extrem General:?no calf tenderness and no edema Ne edema Psych Appearance:?grossly normal Mental Status:?mental status grossly normal Speech and Movement:?speech and movement normal Course Vital Signs Vital signs: Vital Signs Temperature 36.7 C 01/29/22 14:28 Pulse 75 01/29/22 14:28 Respiratory Rate 16 01/29/22 14:28 Blood Pressure 154/95 H 01/29/22 14:28 Pulse Oximetry 95 01/29/22 14:28 Temperature 36.7 C 01/29/22 14:28 Temperature Source Temporal Artery Scan 01/29/22 14:28 Pulse 75 01/29/22 14:28 Respiratory Rate 16 01/29/22 14:28 Respiratory Effort 01/29/22 14:28 Blood Pressure 154/95 H 01/29/22 14:28 Blood Pressure Position Sitting 01/29/22 14:28 Pulse Oximetry 95 01/29/22 14:28 Oxygen Delivery Method Room Air 01/29/22 14:28 Oxygen Flow Rate 0 01/29/22 14:28 Pain Level 7 01/29/22 14:28 Lab/Test Results Lab/Test Results: Laboratory Tests Range/Units 01/29/22 15:50 COVID-19 Source Nasopharynx SARS-CoV-2 (PCR) (Negative) Negative Influenza Type A (PCR) (Negative) Negative Influenza Type B (PCR) (Negative) Negative RSV (PCR) (Negative) Negative
[2022-01-29 17:07] VITALS: RESP 18
== END 2022-01-29 18:45 | disposition home or self-care (01) ==
PROVIDERS: Physician Assistant; Emergency Provider Emergency Medicine; PCP Nurse Practitioner Family
DX: B34.9 Viral infection, unspecified (principal); R53.83 Other fatigue; R51.9 Headache, unspecified; R06.02 Shortness of breath
CPT/HCPCS: 87637; 99283; 71046

== ENCOUNTER 2023-04-01 15:46 | Outpatient (REF) | payer MEDICAID, SELFPAY ==
[2023-04-01 21:00] LABS: Abs Immature Grans 0.02 10^3/uL (0.0-0.06); Absolute Basophil Count 0.06 10^3/uL (0.0-0.2); Absolute Eosinophil Count 0.19 10^3/uL (0.0-0.7); Absolute Lymphocyte Count 2.04 10^3/uL (1.2-3.4); Absolute Monocyte Count 0.48 10^3/uL (0.1-0.8); Absolute Neutrophil Count 4.96 10^3/uL (1.2-6.7); Basophils % 0.8; Eosinophils % 2.5; HCT 45.2 % (40.0-50.0); HGB 15.1 g/dL (13.5-17.5); Immature Grans % 0.3; Lymphocytes % 26.3; MCH 28.9 pg (27.0-33.0); MCHC 33.4 % (32.0-36.0); MCV 87 fL (80-95); MPV 13.3 fL (8.0-11.0); Monocytes % 6.2; Neutrophils % 63.9; Platelet Count 222 10^3/uL (130-400); RBC 5.22 10^6/uL (4.36-5.78); RDW 13.3 % (11.8-14.1); RDW-SD 42.5 fL; WBC 7.75 10^3/uL (4.4-10.8)
[2023-04-01 21:12] LABS: ALT 29 U/L (16-63); AST 21 U/L (15-37); Albumin 3.7 g/dL (3.4-5.0); Alkaline Phosphatase 72 U/L (46-116); Anion Gap 7.3 mmol/L (3-11); BUN 11 mg/dL (7-18); Bilirubin, Total 1.1 mg/dL (0.2-1.0); CO2 31.7 mmol/L (21.0-32.0); CREATININE 0.9 mg/dL (0.70-1.30); Calcium 8.9 mg/dL (8.5-10.1); Chloride 103 mmol/L (98-107); Glucose 106 mg/dL (74-106); Potassium 4.1 mmol/L (3.5-5.1); Sodium 142 mmol/L (136-145); TSH (W/Ref FT4) 2.24 uIU/mL (0.36-3.74); Total Protein 7.5 g/dL (6.4-8.2)
[2023-04-17 13:46] LABS: Testosterone, Free 6.15 ng/dL (4.26-16.4); Testosterone, Total 249 ng/dL (240-950)
== END 2023-04-01 15:47 | disposition home or self-care (01) ==
LOC: NCHCN 15:46
PROVIDERS: PCP Nurse Practitioner Family; Visit Provider Family Medicine
DX: Z00.00 Encounter for general adult medical examination without abnormal findings (principal); F52.21 Male erectile disorder; E66.01 Morbid (severe) obesity due to excess calories; F41.8 Other specified anxiety disorders
CPT/HCPCS: 80053; 84402; 84403; 84443; 85025

== ENCOUNTER 2023-04-06 18:45 | Outpatient (REF) | payer MEDICAID, SELFPAY ==
[2023-04-06 22:06] LABS: Hemoglobin A1C 5.8 % (<5.7)
[2023-04-06 22:45] LABS: Calculated LDL 144 mg/dL (<100); Cholesterol 217 mg/dL (<200); HDL Cholesterol 50 mg/dL (40-60); Triglyceride 115 mg/dL (<150)
[2023-04-08 09:57] LABS: Lyme Ab w Rflx to Lyme Confirm Negative (Negative)
[2023-04-09 19:26] LABS: Anaplasma phagocytophilum Negative (Negative); B. miyamotoi PCR Negative (Negative); Babesia divergens/MO-1 Negative (Negative); Babesia duncani Negative (Negative); Babesia microti Negative (Negative); Ehrlichia chaffeensis Negative (Negative); Ehrlichia ewingii/canis Negative (Negative); Ehrlichia muris eauclairensis Negative (Negative)
== END 2023-04-06 18:46 | disposition home or self-care (01) ==
LOC: NCHCN 18:45
PROVIDERS: PCP Nurse Practitioner Family; Visit Provider Nurse Practitioner Family
DX: F41.8 Other specified anxiety disorders (principal); I10 Essential (primary) hypertension; E78.5 Hyperlipidemia, unspecified; R73.01 Impaired fasting glucose; R07.9 Chest pain, unspecified; E66.01 Morbid (severe) obesity due to excess calories; K59.00 Constipation, unspecified; R07.89 Other chest pain; M25.59 Pain in other specified joint
CPT/HCPCS: 80061; 87798; 83036; 86618

== ENCOUNTER 2025-05-28 12:04 | Outpatient (REF) | payer MEDICAID, SELFPAY ==
[2025-05-28 18:40] LABS: COMMENT (LAB VIEW ONLY) 38.50 mg/dL; Microalb ug/mg Crea 15.3 ug/mg Cr
[2025-05-28 18:40] LABS: ALT 25 U/L (16-63); AST 13 U/L (15-37); Albumin 3.6 g/dL (3.4-5.0); Alkaline Phosphatase 68 U/L (46-116); Anion Gap 4.2 mmol/L (3-11); BUN 13 mg/dL (7-18); Bilirubin, Total 1.1 mg/dL (0.2-1.0); CO2 34.8 mmol/L (21.0-32.0); Calcium 9.2 mg/dL (8.5-10.1); Calculated LDL 134 mg/dL (<100); Chloride 102 mmol/L (98-107); Cholesterol 206 mg/dL (<200); Estimated GFR 111.56 (mL/min/1.73m2); Glucose 106 mg/dL (74-106); HDL Cholesterol 52 mg/dL (>or=40); Potassium 4.3 mmol/L (3.5-5.1); Sodium 141 mmol/L (136-145); Total Protein 7.1 g/dL (6.4-8.2); Triglyceride 104 mg/dL (<150)
== END 2025-05-28 12:05 | disposition home or self-care (01) ==
LOC: LBN 12:04
PROVIDERS: PCP Nurse Practitioner Family; Visit Provider Nurse Practitioner Family
DX: I10 Essential (primary) hypertension (principal)
CPT/HCPCS: 80053; 80061; 82043; 82570

== ENCOUNTER 2025-06-22 11:02 | Outpatient (CLI) | payer MEDICAID, SELFPAY ==
--- NOTE | 2025-06-22 13:28 | DI.RAD_ITS ---
Exam(s) XR FOOT LT COMPLETE EXAM: XR FOOT LT COMPLETE CLINICAL HISTORY: M79.672 Pain left foot,heel. TECHNIQUE: 2D digital imaging was performed. Three views. COMPARISON: CR XR foot RT complete from 10/11/2018 FINDINGS: BONES: No acute fracture is present. No bony destructive lesion is seen. Enthesophyte at the Achilles insertion. Tiny plantar calcaneal spur. JOINTS: No dislocation present. SOFT TISSUE: Normal. IMPRESSION: Heel spurs. DATA REPOSITORY: RADIATION DOSE DELIVERED:
== END 2025-06-22 11:22 ==
PROVIDERS: PCP Nurse Practitioner Family; Visit Provider Nurse Practitioner Family
DX: M77.32 Calcaneal spur, left foot (principal); M79.672 Pain in left foot
CPT/HCPCS: 73630

== ENCOUNTER 2025-07-29 10:59 | Inpatient (IN) | payer MEDICAID, SELFPAY ==
[2025-07-29] VITALS (9 sets, daily range): BP systolic 140–197; BP diastolic 72–94; PULSE 87–97; RESP 16–26; TEMP 36.8–38; O2SAT 85–93
--- NOTE | 2025-07-29 11:00 | RT.EKG_ITS ---
APPROVED REPORT Exam: Resting ECG Reason for Exam: SOB Patient Location: E HR:92 bpm ECG Measurements Heart Rate 92 AXIS AZ 186 P 31 QRSd 97 QRS -11 QT 337 T 56 QTc 419 Conclusion Sinus rhythm...normal P axis, V-rate 60- 99 Probable left atrial enlargement...P >50mS, <-0.10mV V1
--- NOTE | 2025-07-29 11:09 | ED.GENADUL_ITS ---
Discharge Plan Disposition Patient Disposition: Admit to [facility] Condition: Stable Discharge Details Clinical Impression: Influenza A, Acute hypoxic respiratory failure Admit Date/Time: 07/29/25 14:14 Admit Provider: Stew Noland Attending Provider: Stew Noland Primary Care Provider: Marisol Noble ED Provider: Ruddy Orozco HPI General Date/Time Provider Initiated Documentation: 07/29/25 11:06 . HPI Narrative: 49 year-old male presents to ED today by POV/ambulating with a chief complaint of shortness of breath, coughing, fever, weakness/fatigue with onset about 3 days ago. Quality described as generalized URI, not getting better- making it hard to breathe, no radiation to vomiting, syncope, endorses chest pain with deep breaths, nausea without vomiting. Severity is described as severe. Palliating factors include nothing specific attempted. Provoking factors include nothing specific. Events leading up to the incident/Associated Symptoms: Patient quit smoking 2 days ago. Patient not anticoagulated. Related Data Home Medications Medication Instructions Recorded Confirmed bupropion HCl 150 mg 24 hr tablet, 150 mg PO DAILY 02/1501/29/22 extended release albuterol sulfate 90 mcg/actuation 2 puff inhalation Q 6H PRN 04/19/23 aerosol inhaler polyethylene glycol 3350 17 17 g PO DAILY PRN 04/19/23 gram/dose oral powder (Miralax) white petrolatum-mineral oil 94 1 applic ophthalmic (e ye) BID-QID 04/19/23 %-3 % eye ointment (Systane PRN Nighttime) clonidine HCl 0.1 mg tablet 0.1 mg PO QHS 07/27/25 Allergies Allergy/AdvReac Type Severity Reaction Status Date / Time acetaminophen (From Vicodin) Allergy Unknown Verified 04/19/23 13:19 buspirone (From BuSpar) Allergy Unknown Verified 04/19/23 13:19 cephalexin (From Keflex) Allergy Unknown Verified 04/19/23 13:19 hydrocodone (From Vicodin) Allergy Unknown Verified 04/19/23 13:19 lisinopril Allergy Unknown Verified 04/19/23 13:19 buspar Allergy Unknown Uncoded 04/19/23 13:19 General Stated Complaint: SOB MICHAEL: 2 Review of Systems All systems reviewed & are unremarkable except as noted in HPI and below Exam Narrative Exam Narrative: GENERAL APPEARANCE: Morbid obesty, toxic, awake and alert, atraumatic, moderate acute distress. SKIN: Warm, pink, dry, intact, without rashes/lesions/ulcerations. HEAD: Normocephalic, atraumatic, normal hair distribution for gender/age. EYES: Normal conjunctiva, no exudates on lids/lashes. ENT: Nares patent, no circumoral cyanosis, no facial swelling NECK: Supple, trachea midline, painless cervical ROM. LUNGS/CHEST: Lungs - poor air movement diffusely, wheezing, labored respirations, increased A/P diameter, symmetrical expansion, no chest wall deformity HEART (CV/PV): Regular rate and rhythm without murmur, no peripheral edema beyond baseline morbid obesity, some varicosities in lower extremities, Crescencio's negative bilat., no medial thigh tenderness ABDOMEN: Soft, non-distended, no guarding, no tenderness. MSK: Normal ROM, no swelling/deformity to bilateral UEs or LEs, moving all extremities without weakness, no cyanosis, spine midline without tenderness, normal curvature. NEURO: Mental Status AAOx4 - alert to person, place, time, events No facial droop, no forehead involvement. Motor: No focal weakness - strength 5/5 in bilateral UEs and LEs, proximal and distal, symmetric. Sensory: sensation intact to light touch globally. Gait NT. PSYCH: euthymic, cooperative, pleasant, appropriate speech Course Vital Signs Vital signs: Vital Signs Temperature 38.0 C H 07/29/25 11:00 Pulse 92 H 07/29/25 11:00 Respiratory Rate 16 07/29/25 11:00 Blood Pressure 165/72 H 07/29/25 11:00 Pulse Oximetry 85 L 07/29/25 11:00 Temperature 38.0 C H 07/29/25 11:00 Temperature Source Oral 07/29/25 11:00 Pulse 92 H 07/29/25 11:00 Respiratory Rate 16 07/29/25 11:00 Blood Pressure 165/72 H 07/29/25 11:00 Blood Pressure Position Sitting 07/29/25 11:00 Pulse Oximetry 85 L 07/29/25 11:00 Oxygen Delivery Method Room Air 07/29/25 11:00 Oxygen Flow Rate 0 07/29/25 11:00 Medical Decision Making This dictation utilizes [id number] dictation software and may contain unedited grammatical errors. 49 year-old male presents to ED today by POV/ambulating with a chief complaint of shortness of breath, coughing, fever, weakness/fatigue with onset about 3 days ago. Quality described as generalized URI, not getting better- making it hard to breathe, no radiation to vomiting, syncope, endorses chest pain with deep breaths, nausea without vomiting. Severity is described as severe. Palliating factors include nothing specific attempted. Provoking factors include nothing specific. Events leading up to the incident/Associated Symptoms: Patient quit smoking 2 days ago. Patients' medical history: Alcohol abuse, obesity. Family and social history: Former smoker, quit 2 days ago, denies other drug use. Pertinent exam findings / vital signs include poor air movement, diffuse wheezing, benign abdomen, toxic vitals, hypoxic. Differential / pathologies of concern include viral syndrome, respiratory failure, pneumonia, COPD flare, sepsis. Diagnostic studies of: -CBC, CMP, lactate, lipase, VBG, serial troponins, BNP, magnesium, D-dimer, blood cultures, EKG, XR Chest - CBC shows no leukocytosis, shows low lymphocytes - D-dimer negative - VBG shows a compensated pH at 7.35 with CO2 retention at 63 - Lactate negative - CMP without actionable abnormality - Magnesium mildly low at 1.7, was given IV magnesium for empiric treatment for COPD flare/shortness of breath - Troponin negative with reliable onset - BNP within normal limits - Lipase negative - Respiratory PCR swab shows positive for influenza A - Blood cultures pending - X-ray chest shows a possible focal infiltrate in the lower left lobe but to me it looks patchy diffusely similar to a viral type pneumonia - EKG shows sinus rhythm at 92 bpm with P waves followed by narrow complex QRS with poor R wave progression, no ST depressions or reciprocal elevations, no T wave abnormalities, normal QTc, consistent with prior from 2021 Interventions of: -Patient was hypoxic to 85% on arrival and in acute respiratory distress, was given 9 mL DuoNeb, 50 mg IVP ketorolac, 4 mg IV Zofran, 125 mg IV Solu-Medrol, 2 g of IV mag sulfate. - Given 1 dose of Tamiflu as well as IV azithromycin - Consulted with hospitalist Dr. Noland for admission for influenza A and acute hypoxic respiratory failure, accepted for admission- though patient is hesitant to be admitted he did agree to stay. ED Course/Assessment/Plan: 49-year-old male with morbid obesity and heavy tobacco use quit smoking 2 days ago presents with 3 days of upper respiratory infection with fever and severe cough causing some shortness of breath. His D-dimer is negative do not suspect PE, troponin is negative, he tested positive for influenza, his x-ray appears with patchy infiltrates and he was 85% SpO2 on arrival, staying around 91% on 4 L by NC after significant DuoNeb, he was provided with Solu-Medrol, ketorolac, Zofran, mag sulfate empirically prior to his PCR swab returning and was given 1 dose of Tamiflu as well as IV azithromycin on the off chance he has an element of bacterial infection co-occurring, this medicine will likely provide some anti-inflammatory effects in the lungs regardless. Patient is admitted to the hospital by Dr. Ludin alexander in the ER until bed available. Disposition of Influenza A, Acute Hypoxic Respiratory Failure. Patient verbalized understanding of the plan and return to ED criteria and engaged in shared decision making. Medical Records Medical records reviewed: Yes I reviewed the patient's medical records. Imaging Data Radiologic Study: Attestation: I personally reviewed and interpreted this imaging study as follows: Imaging: X-Ray My impression: Viral pneumonia patchy infiltrates diffusely Radiologist's impression: EXAM: XR CHEST 2V PA LATERAL CLINICAL HISTORY: SOB. TECHNIQUE: 2D digital imaging was performed. COMPARISON: CR XR CHEST 2V PA LATERAL from 01/29/2022 FINDINGS: 2 views: Moderate cardiomegaly. The mediastinum is not widened. Slightly increased markings in both lung mayer.. Possible very subtle infiltrate in left lower lobe. Pulmonary venous hypertension pattern. No pleural effusions evident. IMPRESSION: Possible subtle infiltrate left lower lobe. No pleural effusions. Lab Data Lab results reviewed: Yes I reviewed the patient's lab results. Labs: 07/29/25 12:20 Blood Blood Culture - Pending 07/29/25 11:26 Blood Blood Culture - Pending Laboratory Tests Range/Units 07/29/25 07/29/25 07/29/25 11: 11: 11:42 WBC (4.4-10.8) 10^3/uL 6.71 RBC (4.36-5.78) 10^6/uL 5.04 Hgb (13.5-17.5) g/dL 14.4 Hct (40.0-50.0) % 44.2 MCV (80-95) fL 88 MCH (27.0-33.0) pg 28.6 MCHC (32.0-36.0) % 32.6 RDW (11.8-14.1) % 13.4 Plt Count (130-400) 10^3/uL 167 MPV (8.0-11.0) fL 10.9 Immature Gran % % 0.1 Neutrophils % % 80.0 Lymphocytes % % 10.1 Monocytes % % 7.0 Eosinophils % % 2.4 Basophils % % 0.4 Nucleated RBC % (0.0-0.3) % 0.0 Absolute Neutrophils (1.2-6.7) 10^3/uL 5.36 Absolute Lymphocytes (1.2-3.4) 10^3/uL 0.68 L Absolute Monocytes (0.1-0.8) 10^3/uL 0.47 Absolute Eosinophils (0.0-0.7) 10^3/uL 0.16 Absolute Basophils (0.0-0.2) 10^3/uL 0.03 D-Dimer (<500) ng/mlFEU 443 VBG pH (7.31-7.41) 7.35 VBG pCO2 (41-51) mmHg 63 H* VBG pO2 mmHg 31 VBG HCO3 (23-28) mmol/L 35 H VBG Total CO2 (24-29) mmol/L 31 H VBG O2 Saturation % 58 VBG Base Excess (-2-3) mmol/L 9 H VBG Lactate (<or=2.0) mmol/L 0.7 Sodium (136-145) mmol/L 136 Potassium (3.5-5.1) mmol/L 3.7 Chloride (98-107) mmol/L 97 L Carbon Dioxide (21.0-32.0) mmol/L 31.6 Anion Gap (3-11) mmol/L 7.4 BUN (7-18) mg/dL 8 Creatinine (0.70-1.30) mg/dL 0.8 Est GFR (CKD-EPI 2020) (mL/min/1.73m2) 107.15 Glucose (74-106) mg/dL 103 Calcium (8.5-10.1) mg/dL 8.3 L Magnesium (1.8-2.4) mg/dL 1.7 L Total Bilirubin (0.2-1.0) mg/dL 1.4 H AST (15-37) U/L 18 ALT (16-63) U/L 26 Alkaline Phosphatase (46-116) U/L 59 Troponin I (<or=76) ng/L 8 NT-Pro-B Natriuret Pep (<300) pg/mL 152 Cancelled Total Protein (6.4-8.2) g/dL 7.4 Albumin (3.4-5.0) g/dL 3.3 L Lipase (<78) U/L 17 COVID-19 Source Nasopharynx SARS-CoV-2 (PCR) (Negative) Negative Influenza Type A (PCR) (Negative) Positive A Influenza Type B (PCR) (Negative) Negative RSV (PCR) (Negative) Negative Range/Units 07/29/25 12:25 WBC (4.4-10.8) 10^3/uL RBC (4.36-5.78) 10^6/uL Hgb (13.5-17.5) g/dL Hct (40.0-50.0) % MCV (80-95) fL MCH (27.0-33.0) pg MCHC (32.0-36.0) % RDW (11.8-14.1) % Plt Count (130-400) 10^3/uL MPV (8.0-11.0) fL Immature Gran % % Neutrophils % % Lymphocytes % % Monocytes % % Eosinophils % % Basophils % % Nucleated RBC % (0.0-0.3) % Absolute Neutrophils (1.2-6.7) 10^3/uL Absolute Lymphocytes (1.2-3.4) 10^3/uL Absolute Monocytes (0.1-0.8) 10^3/uL Absolute Eosinophils (0.0-0.7) 10^3/uL Absolute Basophils (0.0-0.2) 10^3/uL D-Dimer (<500) ng/mlFEU VBG pH (7.31-7.41) VBG pCO2 (41-51) mmHg VBG pO2 mmHg VBG HCO3 (23-28) mmol/L VBG Total CO2 (24-29) mmol/L VBG O2 Saturation % VBG Base Excess (-2-3) mmol/L VBG Lactate (<or=2.0) mmol/L Sodium (136-145) mmol/L Potassium (3.5-5.1) mmol/L Chloride (98-107) mmol/L Carbon Dioxide (21.0-32.0) mmol/L Anion Gap (3-11) mmol/L BUN (7-18) mg/dL Creatinine (0.70-1.30) mg/dL Est GFR (CKD-EPI 2020) (mL/min/1.73m2) Glucose (74-106) mg/dL Calcium (8.5-10.1) mg/dL Magnesium (1.8-2.4) mg/dL Total Bilirubin (0.2-1.0) mg/dL AST (15-37) U/L ALT (16-63) U/L Alkaline Phosphatase (46-116) U/L Troponin I (<or=76) ng/L 7 NT-Pro-B Natriuret Pep (<300) pg/mL Total Protein (6.4-8.2) g/dL Albumin (3.4-5.0) g/dL Lipase (<78) U/L COVID-19 Source SARS-CoV-2 (PCR) (Negative) Influenza Type A (PCR) (Negative) Influenza Type B (PCR) (Negative) RSV (PCR) (Negative) Critical Care Time Critical Care Time Critical Care Time: Yes Total Critical Care Time: 30 Attestation: Upon my evaluation, this patient had a high probability of imminent or life- threatening deterioration due to acute hypoxic respiratory failure and influenza A, which required my direct attention, intervention, and personal management. I have personally provided 30 minutes of critical care time exclusive of time spent on separately billable procedures. Time includes review of laboratory data, radiology results, discussion with consultants, and monitoring for potential decompensation. Interventions were performed as documented above, including monitoring of critical vital signs, ordering critical medications from bedside, and re-assessing effectiveness, repeating critical exam findings, and reviewing patients' chart. [facility] All Active Problems (Updated 07/29/25 @ 15:22 by Stew Noland) Discharge planning issues (Acute) DVT prophylaxis (Acute) Smoker (Acute) Acute on chronic respiratory failure with hypoxia and hypercapnia (Acute) Acute hypoxic respiratory failure (Acute) Influenza A (Acute) Viral syndrome (Acute) Headache (Acute) Diarrhea (Acute) Acute bronchitis with bronchospasm (Acute) Acute viral syndrome (Acute) Cellulitis of right leg (Acute) Internal derangement of left knee (Acute 01/31/18) Medical History Alcohol abuse Mood disorder Depression Obesity Surgical History No significant past surgical history Social History (Updated 07/29/25 @ 15:17 by Stew Noland) Smoking/Tobacco Use Status: Current every day Tobacco Type: cigarettes Smoking risk assessment performed?: Yes Alcohol Intake: current Alcohol Intake frequency: holidays/special occasions only Drug use: Never Substance use type: does not use Do you feel safe at home: Yes Do you feel safe in your relationship?: Yes Additional Social history: Grew up in [place]. 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
[2025-07-29] MEDS: Albuterol/Ipratropium 3 ML UPD VIAL 9 ML UPD (11:26)
[2025-07-29 11:34] LABS: BE (Venous) 9 mmol/L (-2-3); HCO3 (Venous) 35 mmol/L (23-28); O2 Sat (Venous) 58 %; TCO2 (Venous) 31 mmol/L (24-29); pO2 (Venous) 31 mmHg
[2025-07-29 11:37] LABS: pCO2 (Venous) 63 mmHg (41-51)
[2025-07-29 11:38] LABS: Abs Immature Grans 0.01 10^3/uL (0.0-0.06); HCT 44.2 % (40.0-50.0); HGB 14.4 g/dL (13.5-17.5); Immature Grans % 0.1 %; MCH 28.6 pg (27.0-33.0); MCHC 32.6 % (32.0-36.0); MCV 88 fL (80-95); MPV 10.9 fL (8.0-11.0); Platelet Count 167 10^3/uL (130-400); RBC 5.04 10^6/uL (4.36-5.78); RDW 13.4 % (11.8-14.1); RDW-SD 43.0 fL; WBC 6.71 10^3/uL (4.4-10.8)
[2025-07-29] MEDS: Ondansetron 4 MG/2 ML VIAL IVP (11:48)
[2025-07-29] MEDS: Ketorolac 15 MG/ML VIAL IVP (11:48)
[2025-07-29 12:01] LABS: Lipase 17 U/L (<78); Magnesium 1.7 mg/dL (1.8-2.4); Troponin I 8 ng/L (<or=76)
[2025-07-29 12:06] LABS: D-Dimer 443 ng/mlFEU (<500)
[2025-07-29 12:28] LABS: COVID-19 PCR Negative (Negative); RSV PCR Negative (Negative)
[2025-07-29] MEDS: MAGNESIUM SULFATE 2 GM/50 ML BAG IV_INF (12:33)
[2025-07-29] MEDS: Nicotine 7 MG/24 HR PATCH TD (12:34)
[2025-07-29] MEDS: methylPREDNISolone SUCC 125 MG VIAL IVP (12:34)
--- NOTE | 2025-07-29 13:00 | DI.RAD_ITS ---
Exam(s) XR CHEST 2V PA LATERAL EXAM: XR CHEST 2V PA LATERAL CLINICAL HISTORY: SOB. TECHNIQUE: 2D digital imaging was performed. COMPARISON: CR XR CHEST 2V PA LATERAL from 01/29/2022 FINDINGS: 2 views: Moderate cardiomegaly. The mediastinum is not widened. Slightly increased markings in both lung mayer.. Possible very subtle infiltrate in left lower lobe. Pulmonary venous hypertension pattern. No pleural effusions evident. IMPRESSION: Possible subtle infiltrate left lower lobe. No pleural effusions. DATA REPOSITORY: RADIATION DOSE DELIVERED:
[2025-07-29 13:06] LABS: Troponin I 7 ng/L (<or=76)
[2025-07-29] MEDS: Oseltamivir 75 MG CAP PO ×2 (14:05→20:08)
[2025-07-29] MEDS: AZITHROMYCIN 500 MG in Normal Saline 250 ML 250 MG IVPB (14:05)
[2025-07-29 14:21] LABS: ALT 26 U/L (16-63); AST 18 U/L (15-37); Albumin 3.3 g/dL (3.4-5.0); Alkaline Phosphatase 59 U/L (46-116); Anion Gap 7.4 mmol/L (3-11); BUN 8 mg/dL (7-18); Bilirubin, Total 1.4 mg/dL (0.2-1.0); CO2 31.6 mmol/L (21.0-32.0); Calcium 8.3 mg/dL (8.5-10.1); Chloride 97 mmol/L (98-107); Glucose 103 mg/dL (74-106); Potassium 3.7 mmol/L (3.5-5.1); Sodium 136 mmol/L (136-145); Total Protein 7.4 g/dL (6.4-8.2)
[2025-07-29] MEDS: Albuterol/Ipratropium 3 ML UPD VIAL UPD ×2 (14:54→20:50)
--- NOTE | 2025-07-29 14:55 | DI.VRAD_ITS ---
PROCEDURE INFORMATION: Exam: XR Chest Exam date and time: 07/29/2025 1:33 PM Age: 49 years old Clinical indication: Shortness of breath; Additional info: Positive for flu TECHNIQUE: Imaging protocol: Radiologic exam of the chest. Views: 2 views. COMPARISON: CR XR CHEST 2V PA LATERAL 01/29/2022 3:55 PM FINDINGS: Lungs: Unremarkable. No consolidation. Pleural spaces: Unremarkable. No pleural effusion. No pneumothorax. Heart/Mediastinum: Unremarkable. No cardiomegaly. Bones/joints: Unremarkable. IMPRESSION: No acute findings. Dictated and Authenticated by: Chay Watts MD. Orderin Pam Fox MD
--- NOTE | 2025-07-29 15:11 | HPE_ITS ---
Date of service: 08/29/25 Time of Service: 15:11 Assessment and Plan Assessment and plan (1) Influenza A: Status: Acute Assessment and plan: Influenza A positive. Startd on oseltamivir, not within 48 hours but indicated with severity of illness With respiratory failure and suggestion of some focal infiltrate on CXR, treat with ceftriaxone (he assures me he never had allergy with any antibiotic, just stomach issues) and azithromycin and get MRSA swab, cover MRSA if positive See below. (2) Acute on chronic respiratory failure with hypoxia and hypercapnia: Status: Acute Assessment and plan: Hypoxia is acute. Based on VBG with normal pH and elevated pHCO3 the hypercarbia appears chronic, so I don't think he needs BiPAP support, but I will follow. This may be undiagnosed OHS or COPD related, though he denies h/o COPD and no obvious emphysema on previous imaging. Treating as above. (3) Smoker: Status: Acute Assessment and plan: Encourage cessation, on buproprion. (4) Obesity: Assessment and plan: Chronic issue. He is on buproprion now, which can help, could add naltrexone (he also has h/o AUD in remission). F/u with PCP. (5) Mood disorder: Assessment and plan: Continue buproprion and clonidine. (6) DVT prophylaxis: Status: Acute Assessment and plan: Ambulator, young. Not high risk, SCDs while in bed. (7) Discharge planning issues: Status: Acute Assessment and plan: He is anxious about his bill, dog at home. CM to review his insurance. We discussed indication for admission with respiratory failure and limited po intake. History of Present Illness History of Present Illness Chief Complaint: cough, SOB Narrative: 49 yo M with history of smoking, BMI 51, who presented with 3 days of progressive cough and shortness of breath and fever. Started with a cough, then developed nasal congestion, rhinorrhea, sore throat, and fever/sweats. He hasn't eaten much in 2 days. He is nauseous, wretching some, but no vomiting. Had loose stools earlier, but not today. Denies chest pain or palpitations, but chest tight with coughing. He is urinating normally without pain or blood. His is coughing up some sputum, no blood. The nebulizer does help some here. He states he takes albuterol at times when he gets sick, but does not have a diagnosis of COPD, also denies sleep apnea. He is trying to quit smoking and last smoked 2 days ago. He is taking the buproprion for anxiety more than smoking cessation. Review of Systems All systems reviewed & are unremarkable except as noted in HPI and below PFSH All Active Problems (Updated 07/29/25 @ 15:22 by Stew Noland) Discharge planning issues (Acute) DVT prophylaxis (Acute) Smoker (Acute) Acute on chronic respiratory failure with hypoxia and hypercapnia (Acute) Acute hypoxic respiratory failure (Acute) Influenza A (Acute) Diarrhea (Acute) Headache (Acute) Viral syndrome (Acute) Acute viral syndrome (Acute) Acute bronchitis with bronchospasm (Acute) Cellulitis of right leg (Acute) Internal derangement of left knee (Acute 01/31/18) Medical History Alcohol abuse Mood disorder Depression Obesity Surgical History No significant past surgical history Social History (Updated 07/29/25 @ 15:17 by Stew Noland) Smoking/Tobacco Use Status: Current every day Tobacco Type: cigarettes Smoking risk assessment performed?: Yes Alcohol Intake: current Alcohol Intake frequency: holidays/special occasions only Drug use: Never Substance use type: does not use Do you feel safe at home: Yes Do you feel safe in your relationship?: Yes Additional Social history: Grew up in [place]. [place] [employer], lives with dog in [place]. Meds Allergies and Home Medications Allergies Allergy/AdvReac Type Severity Reaction Status Date / Time acetaminophen (From Vicodin) Allergy Unknown Verified 04/19/23 13:19 buspirone (From BuSpar) Allergy Unknown Verified 04/19/23 13:19 cephalexin (From Keflex) Allergy Unknown Verified 04/19/23 13:19 hydrocodone (From Vicodin) Allergy Unknown Verified 04/19/23 13:19 lisinopril Allergy Unknown Verified 04/19/23 13:19 buspar Allergy Unknown Uncoded 04/19/23 13:19 Home Medications Medication Instructions Recorded Confirmed Type bupropion HCl 150 mg 24 hr tablet, 150 mg PO DAILY 02/1501/29/22 History extended release albuterol sulfate 90 mcg/actuation 2 puff inhalation Q 6H PRN 04/19/23 History aerosol inhaler polyethylene glycol 3350 17 17 g PO DAILY PRN 04/19/23 History gram/dose oral powder (Miralax) white petrolatum-mineral oil 94 1 applic ophthalmic (e ye) BID-QID 04/19/23 History %-3 % eye ointment (Systane PRN Nighttime) clonidine HCl 0.1 mg tablet 0.1 mg PO QHS 07/27/25 Hi story Exam Narrative Exam Narrative: GEN: Alert and oriented x 4, pleasant and cooperative, gives linear history. Clammy, no acute distress at rest with oxymask in place. HEENT: Head atraumatic. Conjunctiva clear, no icterus. TMs clear. PEERL, EOMI. +rhinorrhea. MMM, OP red but no exudate. Neck is supple with no masses or lymphadenopathy, trachea midline LUNGS: Mild diffuse expiratory wheeze, no rales, normal effort with oxymask, O2 sat drops to 88 when mask out of place CV: RRR with no murmurs, gallops, or rubs. ABD: active bowel sounds, soft, nontender and nondistended. No masses. EXT: no cyanosis, clubbing. Trace garret ankle edema, warm MSK: No joint redness or swelling NEURO: CN 2-12 grossly intact. Normal movement of 4 extremities. Normal speech and coordination. No tremor SKIN: No rashes or open wounds. PSYCH: normal mood and affect, normal thought process Results Imaging Chest x-ray: report reviewed and image reviewed EKG: report reviewed and image reviewed (NSR 92, nl axis, intervals, no ST abnormalities) Labs 07/29/25 11:26 07/29/25 11:26 Labs: Laboratory Results - last 24 hr 07/29/25 07/29/25 07/29/25 11:26 11: 11:42 WBC 6.71 RBC 5.04 Hgb 14.4 Hct 44.2 MCV 88 MCH 28.6 MCHC 32.6 RDW 13.4 Plt Count 167 MPV 10.9 Immature Gran % 0.1 Neutrophils % 80.0 Lymphocytes % 10.1 Monocytes % 7.0 Eosinophils % 2.4 Basophils % 0.4 Nucleated RBC % 0.0 Absolute Neutrophils 5.36 Absolute Lymphocytes 0.68 L Absolute Monocytes 0.47 Absolute Eosinophils 0.16 Absolute Basophils 0.03 D-Dimer 443 VBG pH 7.35 VBG pCO2 63 H* VBG pO2 31 VBG HCO3 35 H VBG Total CO2 31 H VBG O2 Saturation 58 VBG Base Excess 9 H VBG Lactate 0.7 Sodium 136 Potassium 3.7 Chloride 97 L Carbon Dioxide 31.6 Anion Gap 7.4 BUN 8 Creatinine 0.8 Est GFR (CKD-EPI 2020) 107.15 Glucose 103 Calcium 8.3 L Magnesium 1.7 L Total Bilirubin 1.4 H AST 18 ALT 26 Alkaline Phosphatase 59 Troponin I 8 NT-Pro-B Natriuret Pep 152 Cancelled Total Protein 7.4 Albumin 3.3 L Lipase 17 COVID-19 Source Nasopharynx SARS-CoV-2 (PCR) Negative Influenza Type A (PCR) Positive A Influenza Type B (PCR) Negative RSV (PCR) Negative 07/29/25 12:25 WBC RBC Hgb Hct MCV MCH MCHC RDW Plt Count MPV Immature Gran % Neutrophils % Lymphocytes % Monocytes % Eosinophils % Basophils % Nucleated RBC % Absolute Neutrophils Absolute Lymphocytes Absolute Monocytes Absolute Eosinophils Absolute Basophils D-Dimer VBG pH VBG pCO2 VBG pO2 VBG HCO3 VBG Total CO2 VBG O2 Saturation VBG Base Excess VBG Lactate Sodium Potassium Chloride Carbon Dioxide Anion Gap BUN Creatinine Est GFR (CKD-EPI 2020) Glucose Calcium Magnesium Total Bilirubin AST ALT Alkaline Phosphatase Troponin I 7 NT-Pro-B Natriuret Pep Total Protein Albumin Lipase COVID-19 Source SARS-CoV-2 (PCR) Influenza Type A (PCR) Influenza Type B (PCR) RSV (PCR) Last Vital Signs Temp 38.0 C H 07/29/25 11:45 Pulse 97 H 07/29/25 11:56 Resp 26 H 07/29/25 11:56 BP 165/72 H 07/29/25 11:45 Pulse Ox 91 L 07/29/25 11:56 Time Spent Time spent with Patient: 55-74 minutes Time was spent: preparing to see the patient(eg.review tests), obtaining and/or reviewing separately otained hiistory, ordering medications,tests, procedures, referring, communicating with other health caregivers non medical, indepentently interpreting results, counseling the patient and care coordination
[2025-07-29] MEDS: cefTRIAXone 2 GM/50 ML BAG IVPB (15:21)
--- NOTE | 2025-07-29 18:03 | W.PC.ACHO ---
Registration Status: ADM IN Primary Language: Preferred Language: Kinyarwanda ED Information & Data Chief Complaint SOB 07/29/25 11:44 Chief Complaint SOB 07/29/25 11:10 Triage Note Patient here with SOB, 07/29/25 11:[address] CP when he coughs excessively. Sx for 3 days. Endorsing fever and chills. Is also nauseous. Medical / Surgical History (Last Reviewed 07/29/25 @ 15:16 by Stew Noland) Alcohol abuse Mood disorder Depression Obesity (Last Reviewed 07/29/25 @ 15:16 by Stew Noland) No significant past surgical history Most Recent Vital Signs Temperature 36.8 C 07/29/25 15:51 Temperature Source Oral 07/29/25 11:45 Pulse 92 H 07/29/25 15:51 Respiratory Rate 18 07/29/25 15:51 Respiratory Effort Normal, Short of Breath 07/29/25 11:44 Respiratory Depth Retractive 07/29/25 11:44 Respiratory Pattern Normal 07/29/25 11:44 Blood Pressure 197/94 H 07/29/25 15:51 Blood Pressure Mean 128 07/29/25 15:51 Blood Pressure Position Sitting 07/29/25 11:45 Pulse Oximetry 93 07/29/25 15:51 Oxygen Delivery Method OxyMask 07/29/25 15:51 Oxygen Flow Rate 4 07/29/25 15:51 Allergies acetaminophen (From Vicodin) Allergy (Unknown, Verified 04/19/23 13:19) buspirone (From BuSpar) Allergy (Unknown, Verified 04/19/23 13:19) cephalexin (From Keflex) Allergy (Unknown, Verified 04/19/23 13:19) hydrocodone (From Vicodin) Allergy (Unknown, Verified 04/19/23 13:19) lisinopril Allergy (Unknown, Verified 04/19/23 13:19) buspar Allergy (Unknown, Uncoded 04/19/23 13:19) Active Medications Generic Name Dose Route Start Last Admin Trade Name Freq PRN Reason Stop Dose Admin Albuterol/Ipratropium 3 ml 07/29/25 15:00 07/29/25 14:54 Albuterol/Ipratropium 3 Ml Upd Vial UPD 3 ml Q6H ANJALI Administration Ceftriaxone Sodium/Dextrose 2 gm in 50 mls @ 100 mls/hr 07/29/25 15:15 07/29/25 15:21 Rocephin IVPB 100 mls/hr Q24H ANJALI Administration Oseltamivir Phosphate 75 mg 07/29/25 13:55 07/29/25 14:05 Oseltamivir 75 Mg Cap PO 75 mg BID ANJALI Administration IV IV Catheter Type [Right Saline Lock Antecubital] IV Catheter Gauge [Right 18 Antecubital] Diet Orders Category Date Time Status Regular/Normal [DIET] Nutrition 07/29/25 Dinner Active Diagnostics 07/29/25 07/29/25 07/29/25 Range/Units 12:25 11:42 11:26 WBC (4.4-10.8) 10^3/uL RBC (4.36-5.78) 10^6/uL Hgb (13.5-17.5) g/dL Hct (40.0-50.0) % MCV (80-95) fL MCH (27.0-33.0) pg MCHC (32.0-36.0) % RDW (11.8-14.1) % Plt Count (130-400) 10^3/uL MPV (8.0-11.0) fL Immature Gran % % Neutrophils % % Lymphocytes % % Monocytes % % Eosinophils % % Basophils % % Nucleated RBC % (0.0-0.3) % Absolute Neutrophils (1.2-6.7) 10^3/uL Absolute Lymphocytes (1.2-3.4) 10^3/uL Absolute Monocytes (0.1-0.8) 10^3/uL Absolute Eosinophils (0.0-0.7) 10^3/uL Absolute Basophils (0.0-0.2) 10^3/uL D-Dimer (<500) ng/mlFEU VBG pH (7.31-7.41) VBG pCO2 (41-51) mmHg VBG pO2 mmHg VBG HCO3 (23-28) mmol/L VBG Total CO2 (24-29) mmol/L VBG O2 Saturation % VBG Base Excess (-2-3) mmol/L VBG Lactate (<or=2.0) mmol/L Sodium (136-145) mmol/L Potassium (3.5-5.1) mmol/L Chloride (98-107) mmol/L Carbon Dioxide (21.0-32.0) mmol/L Anion Gap (3-11) mmol/L BUN (7-18) mg/dL Creatinine (0.70-1.30) mg/dL Est GFR (CKD-EPI 2020) (mL/min/1.73m2) Glucose (74-106) mg/dL Calcium (8.5-10.1) mg/dL Magnesium (1.8-2.4) mg/dL Total Bilirubin (0.2-1.0) mg/dL AST (15-37) U/L ALT (16-63) U/L Alkaline Phosphatase (46-116) U/L Troponin I 7 (<or=76) ng/L NT-Pro-B Natriuret Pep Cancelled (<300) pg/mL Total Protein 7.4 (6.4-8.2) g/dL Albumin 3.3 L (3.4-5.0) g/dL Lipase 17 (<78) U/L COVID-19 Source Nasopharynx SARS-CoV-2 (PCR) Negative (Negative) Influenza Type A (PCR) Positive A (Negative) Influenza Type B (PCR) Negative (Negative) RSV (PCR) Negative (Negative) 07/29/25 Range/Units 11:26 WBC 6.71 (4.4-10.8) 10^3/uL RBC 5.04 (4.36-5.78) 10^6/uL Hgb 14.4 (13.5-17.5) g/dL Hct 44.2 (40.0-50.0) % MCV 88 (80-95) fL MCH 28.6 (27.0-33.0) pg MCHC 32.6 (32.0-36.0) % RDW 13.4 (11.8-14.1) % Plt Count 167 (130-400) 10^3/uL MPV 10.9 (8.0-11.0) fL Immature Gran % 0.1 % Neutrophils % 80.0 % Lymphocytes % 10.1 % Monocytes % 7.0 % Eosinophils % 2.4 % Basophils % 0.4 % Nucleated RBC % 0.0 (0.0-0.3) % Absolute Neutrophils 5.36 (1.2-6.7) 10^3/uL Absolute Lymphocytes 0.68 L (1.2-3.4) 10^3/uL Absolute Monocytes 0.47 (0.1-0.8) 10^3/uL Absolute Eosinophils 0.16 (0.0-0.7) 10^3/uL Absolute Basophils 0.03 (0.0-0.2) 10^3/uL D-Dimer 443 (<500) ng/mlFEU VBG pH 7.35 (7.31-7.41) VBG pCO2 63 H* (41-51) mmHg VBG pO2 31 mmHg VBG HCO3 35 H (23-28) mmol/L VBG Total CO2 31 H (24-29) mmol/L VBG O2 Saturation 58 % VBG Base Excess 9 H (-2-3) mmol/L VBG Lactate 0.7 (<or=2.0) mmol/L Sodium 136 (136-145) mmol/L Potassium 3.7 (3.5-5.1) mmol/L Chloride 97 L (98-107) mmol/L Carbon Dioxide 31.6 (21.0-32.0) mmol/L Anion Gap 7.4 (3-11) mmol/L BUN 8 (7-18) mg/dL Creatinine 0.8 (0.70-1.30) mg/dL Est GFR (CKD-EPI 2020) 107.15 (mL/min/1.73m2) Glucose 103 (74-106) mg/dL Calcium 8.3 L (8.5-10.1) mg/dL Magnesium 1.7 L (1.8-2.4) mg/dL Total Bilirubin 1.4 H (0.2-1.0) mg/dL AST 18 (15-37) U/L ALT 26 (16-63) U/L Alkaline Phosphatase 59 (46-116) U/L Troponin I 8 (<or=76) ng/L NT-Pro-B Natriuret Pep 152 (<300) pg/mL Total Protein (6.4-8.2) g/dL Albumin (3.4-5.0) g/dL Lipase (<78) U/L COVID-19 Source SARS-CoV-2 (PCR) (Negative) Influenza Type A (PCR) (Negative) Influenza Type B (PCR) (Negative) RSV (PCR) (Negative) 07/29/25 12:20 Blood Culture - Pending Blood 07/29/25 11:26 Blood Culture - Pending Blood Intake and Output - 24 Hour Total 07/29/25 10:59 thru 07/29/25 11:00 Weight 182.798 kg Falls Risk Assessment History of Falls No History 07/29/25 11:46 Contributing Factors No Factors 07/29/25 11:46 Ambulatory Aids Independent 07/29/25 11:46 Tubes/Lines None 07/29/25 11:46 Gait Evaluation No gait disturbance 07/29/25 11:46 Cognition No cognitive impairment 07/29/25 11:46 Fall Total Score 0 07/29/25 11:46 Level of Risk Standard/Low Risk 07/29/25 11:46 Problems (Last Reviewed 07/29/25 @ 15:16 by Stew Noland) Discharge planning issues (Acute) DVT prophylaxis (Acute) Smoker (Acute) Acute on chronic respiratory failure with hypoxia and hypercapnia (Acute) Influenza A (Acute) v v v v v v v v v Sending and/or Receiving Nurses: Please use comment section below to note any information pertinent to the patient hand-off not included above. Information / Comments: All questions answered. Report received from: Report received from Bobbi Anderson @ 1800
[2025-07-29] MEDS: Normal Saline Flush 10 ML SYR (19:15)
[2025-07-29] MEDS: Enoxaparin 60 MG/0.6 ML SYR SC (20:07)
[2025-07-29] MEDS: cloNIDine 0.1 MG TAB PO (20:07)
[2025-07-30] VITALS (16 sets, daily range): BP systolic 107–145; BP diastolic 51–89; PULSE 72–91; RESP 17–20; TEMP 36.2–37.1; O2SAT 86–94
[2025-07-30] MEDS: Albuterol/Ipratropium 3 ML UPD VIAL UPD ×4 (02:18→20:57)
[2025-07-30 07:18] LABS: MRSA PCR Negative (Negative)
[2025-07-30 07:22] LABS: HCT 43.1 % (40.0-50.0); HGB 13.9 g/dL (13.5-17.5); MCH 28.6 pg (27.0-33.0); MCHC 32.3 % (32.0-36.0); MCV 89 fL (80-95); MPV 11.7 fL (8.0-11.0); Platelet Count 181 10^3/uL (130-400); RBC 4.86 10^6/uL (4.36-5.78); RDW 13.3 % (11.8-14.1); RDW-SD 43.8 fL; WBC 6.10 10^3/uL (4.4-10.8)
[2025-07-30 07:32] LABS: Anion Gap 3.5 mmol/L (3-11); BUN 10 mg/dL (7-18); CO2 36.5 mmol/L (21.0-32.0); Calcium 8.2 mg/dL (8.5-10.1); Chloride 100 mmol/L (98-107); Glucose 116 mg/dL (74-106); Magnesium 2.2 mg/dL (1.8-2.4); Potassium 4.1 mmol/L (3.5-5.1); Sodium 140 mmol/L (136-145)
[2025-07-30] MEDS: Oseltamivir 75 MG CAP PO ×2 (08:30→19:43)
[2025-07-30] MEDS: Enoxaparin 60 MG/0.6 ML SYR SC ×2 (08:30→19:43)
[2025-07-30] MEDS: Azithromycin 250 MG TAB PO (08:30)
[2025-07-30 09:19] LABS: BE (Venous) 12 mmol/L (-2-3); HCO3 (Venous) 36 mmol/L (23-28); O2 Sat (Venous) 95 %; TCO2 (Venous) 32 mmol/L (24-29); pCO2 (Venous) 59 mmHg (41-51); pO2 (Venous) 68 mmHg
--- NOTE | 2025-07-30 09:50 | RESPIRATORY ---
RT Initial Evalutation/Assessment Start: 07/30/25 09:38 Freq: .q shift and prn Status: Active Protocol: Document 07/30/25 09:39 (Rec: 07/30/25 09:50 [id number]) RT Assessment Smoking History Smoking/Tobacco Use Former Tobacco Use Status Tobacco: How many 20 years used Quit Date 07/28/25 Tobacco Type cigarettes Packs per Day 1 Cigarettes per Day 30 Years smoked 20 Smoking packs per 1 day OXYGEN HISTORY: Supplemental O2 At Rest 0 With Exertion 0 CPAP Can use home machine N/A BIPAP Can you home machine N/A Trilogy/AVAPS Can use home machine N/A DME/Compliance DME N/A Current Respiratory Symptoms Current Respiratory Sputum production,Wheezing Symptoms Activity Activity Level Able to perform ADLs independently. Works multimedia manager job at post [employer] Respiratory Breath Sounds Breath Sounds Faint wheezing or rhonci, decreased sounds throughout Response Mild response,subjective improvement Pulse Rate <100 Respiratory Rate <18 Shortness of Breath None Respiratory Therapy 3 Score Total Assessment and Plan RT Treatment Bronchodilator Aerosol Therapy Protocol,Lung Expansion Protocol Therapy Protocol,Bronchial Hygiene Therapy Protocol Note Pt has been on 4L OxyMask while sleeping. Room air while awake is giving fluctuating readings 88-94%. Pt reports large amounts of copious thick secretions - reportedly yellow in color. Pt quit smoking 1.5 packs of cigarettes this past Wednesday, July 28, 2025. Reports he smoked 1.5 to 2 packs a day for the last 20 years. Lung sounds are diminished throughout, with faint wheezing in all lobes posteriorly. Mild score of 3: Will continue Duoneb treatments Q6H, give patient Vibra -PEP acapella for secretion clearance, and Incentive Spirometer for lung expansion therapy. Recommended that patient get PFT study done as he has never had one. Recommend that patient also get a sleep study as he needed 4L oxygen overnight but able to maintain room air for the most part while awake - also noted he has severe snoring and family has attested that they think he stops breathing while asleep.
[2025-07-30] MEDS: cefTRIAXone 2 GM/50 ML BAG IVPB (15:01)
--- NOTE | 2025-07-30 16:38 | PDOC.CMIN ---
Date of service: 07/30/25 Time of Service: 16:39 Care Management Initial Assmt Initial Assessment Reason for Hospitalization: Influenza,respiratory failure Functional Status/Living Situation Patient Presentation: Phu was lying in bed when CM met with him. He was very pleasant in manner and easy to engage in conversation. Phu lives alone in an apartment in [facility] with his [place] Shandra. He has 3 children, sons Mike and Chay and daughter Elvira. He is from his second although they remain good friends. Phu works for the [employer]. He is independent at baseline and does not receive any community services. Phu talked a bit about his [employer] upbringing in [place] and about some of his relatives who are nuns. He also talked a lot about his mother, who he describes as a very strong woman. He shared a story of a time when she took on [employer] in [place] for a company she worked for, and did not back down. Phu talked about her independence, but also about the lessons she instilled in him and her expectation that he treat everyone, especially women, with respect. He obviously cared for her very much. Phu was admitted with Influenza and possible pneumonia. He informed CM that he is feeling a lot better and hopes to go home tomorrow. He still has a sore throat and junky cough, but is not requiring supplemental oxygen and is afebrile. CM provided him with a copy of the [place] Advanced Directives and contact information for CM, should he want assistance with their completion. Town of Residence: [facility] Resides with: Alone Significant Other/Family: Local Natural Supports: family including children and ex- Employment Status: Employed (works for the [employer]) Instrumental Activities of Daily Living (ADLs): Independent Medications Medication Management: No Issues/Barriers identified Advance Directives Advance Directives: Do you have an Advance Directive: N 01/05/14, 11:04 AD On File at [facility]: N 13, 12:32 Date Asked 07/29/25 07/29/25, 11:11 AD Date Reviewed COLST On File at [facility] COLST Date Scanned Code Status Resuscitation Status Full Code Portal Pt does not currently have a portal and education provided: Yes Insurance Coverage/Financial Issues Insurance: Medicaid Care Team Visit Care Team Role Provider Type Marisol Noble Primary Care Provider ADV PRACTICE REGISTERED NURSE SHENG Reese Emergency Provider [employer] OPERATOR HELPER Stew Noland Admit Provider MD GONZALES STAFF PHYSICIAN Attending Provider Discharge Potential Discharge Needs: PCP F/U Appt Anticipated Barriers to Discharge: None Identified Patient/Family Education Needs: Review discharge instructions, discuss Ask Me Three Transportation: Private vehicle Plan: Anticipate Phu will be discharged home with no new services,when medically cleared. He will follow up with his PCP and plan of care and transport with his ex- via private vehicle. CM will follow and continue to assess for discharge needs. Social Determinants of Health Screening Will the Patient Participate in the Screening?: Declined to provide Do you worry about having a steady place to live?: choose not to answer PFSH All Active Problems (Updated 07/29/25 @ 15:22 by Stew Noland) Discharge planning issues (Acute) DVT prophylaxis (Acute) Smoker (Acute) Acute on chronic respiratory failure with hypoxia and hypercapnia (Acute) Acute hypoxic respiratory failure (Acute) Influenza A (Acute) Viral syndrome (Acute) Headache (Acute) Diarrhea (Acute) Acute bronchitis with bronchospasm (Acute) Acute viral syndrome (Acute) Cellulitis of right leg (Acute) Internal derangement of left knee (Acute 01/31/18) Medical History Alcohol abuse Mood disorder Depression Obesity Surgical History No significant past surgical history Social History (Updated 07/29/25 @ 15:17 by Stew Noland) Smoking/Tobacco Use Status: Former Tobacco Use Quit Date: 07/28/25 Tobacco: How many years used: 20 Smoking risk assessment performed?: Yes Alcohol Intake: current Alcohol Intake frequency: holidays/special occasions only Drug use: Never Substance use type: does not use Housing: apartment Do you feel safe at home: Yes Do you feel safe in your relationship?: Yes Additional Social history: Grew up in [place]. Works at post office in [place], lives with dog in [facility].
--- NOTE | 2025-07-30 17:22 | W.PM.PROGNOT ---
Date of Service Date of service: 07/30/25 Time of Service: 17:22 Assessment and Plan Assessment and plan (1) Influenza A: Status: Acute Assessment and plan: Influenza A positive. Startd on oseltamivir, not within 48 hours but indicated with severity of illness With respiratory failure and suggestion of some focal infiltrate on CXR, treat with ceftriaxone (he assures me he never had allergy with any antibiotic, just stomach issues) and azithromycin and get MRSA swab, cover MRSA if positive No steroids as a/w worse outcomes with flu and no clear COPD diagnosis. See below. (2) Acute on chronic respiratory failure with hypoxia and hypercapnia: Status: Acute Assessment and plan: Hypoxia is acute, imrpoved 07/30 but still on 1 liter Based on VBG with normal pH and elevated pHCO3 the hypercarbia appears chronic, so I don't think he needs BiPAP support, but I will follow. This may be undiagnosed OHS or COPD related, though he denies h/o COPD and no obvious emphysema on previous imaging. Treating as above. (3) Smoker: Status: Acute Assessment and plan: Encourage cessation, NRT prn. He now says he isn't taking buproprion. (4) Mood disorder: Assessment and plan: Continue clonidine. (5) DVT prophylaxis: Status: Acute Assessment and plan: Ambulator, young. Not high risk, SCDs while in bed. (6) Discharge planning issues: Status: Acute Assessment and plan: He is anxious about his bill, dog at home, but agreed to admission. Home when can wean off O2, hopefully 07/31 Subjective Subjective Patient reports: no new complaints, feels better, tolerating a regular diet and voiding w/o difficulty; denies vomiting or fever Interval history since last seen: Feels much better. IS helps. He feels like nebs not doing a lot. Exam Narrative Exam Narrative: GEN: Alert and oriented, NAD Lungs: slight expiratory wheeze in lower mayer, no rales CV: RRR ABD: soft, NT/ND ext: trace garret LE edema, warm, no cyanosis Objective Last Vital Signs Temp 37.1 C 07/30/25 15:36 Pulse 83 07/30/25 15:36 Resp 17 07/30/25 15:36 BP 145/78 H 07/30/25 15:36 Pulse Ox 94 07/30/25 15:36 Laboratory Results - last 24 hr 07/30/25 07/30/25 07/30/25 04:45 06:30 09:10 WBC 6.10 RBC 4.86 Hgb 13.9 Hct 43.1 MCV 89 MCH 28.6 MCHC 32.3 RDW 13.3 Plt Count 181 MPV 11.7 H VBG pH 7.40 VBG pCO2 59 H VBG pO2 68 VBG HCO3 36 H VBG Total CO2 32 H VBG O2 Saturation 95 VBG Base Excess 12 H Sodium 140 Potassium 4.1 Chloride 100 Carbon Dioxide 36.5 H Anion Gap 3.5 BUN 10 Creatinine 0.6 L Est GFR (CKD-EPI 2020) 116.87 Glucose 116 H Calcium 8.2 L Magnesium 2.2 MRSA (TEM-PCR) Negative PAWSS Have you Been Recently Intoxicated or Drunk Within the Last 30 days?: No Have you Ever Experienced Previous Episodes of Alcohol Withdrawal?: No Have you ever Experienced Withdrawal Seizures?: No Have you ever Experienced Delirium Tremens(DT)s?: No Have you ever undergone Alcohol Rehabilitation Treatment (i.e, inpt ot outpatient treatment programs)?: No Have you ever Experienced Blackouts?: No Have you ever Combined Alcohol with other Downers within the last 90 days?: No Have you ever Combined Alcohol with any other Substance of Abuse during the last 90 days?: No Positive Blood Alcohol level on Presentation? [PCS.BAL]: No Evidence of Increased Autonomic Activity (i.e. HR>120, tremor, sweating, agitation, nausea)?: No Result: 0 Time Spent with Patient Time Spent with Patient: 25-34 minutes Time was spent: preparing to see the patient(eg.review tests), obtaining and/or reviewing separately otained hiistory, ordering medications,tests, procedures, referring, communicating with other health day care supervisor, indepentently interpreting results, counseling the patient and care coordination
[2025-07-30] MEDS: cloNIDine 0.1 MG TAB PO (19:43)
[2025-07-30] MEDS: Normal Saline Flush 10 ML SYR IVP (19:44)
[2025-07-30] MEDS: Acetaminophen 325 MG TAB 650 MG PO (21:07)
[2025-07-31 02:45] VITALS: PULSE 61; RESP 18; O2SAT 91
[2025-07-31] MEDS: Albuterol/Ipratropium 3 ML UPD VIAL UPD ×2 (02:45→08:18)
[2025-07-31 03:40] VITALS: BP 136/78; PULSE 64; RESP 17; TEMP 36.2; O2SAT 91
[2025-07-31 03:59] VITALS: O2SAT 92
[2025-07-31] MEDS: Enoxaparin 60 MG/0.6 ML SYR SC (07:47)
[2025-07-31] MEDS: Normal Saline Flush 10 ML SYR IVP (07:47)
[2025-07-31] MEDS: Azithromycin 250 MG TAB PO (07:47)
[2025-07-31] MEDS: Oseltamivir 75 MG CAP PO (07:47)
[2025-07-31 07:51] VITALS: BP 130/81; PULSE 66; RESP 20; TEMP 36.8; O2SAT 97
--- NOTE | 2025-07-31 08:12 | PDOC.CMPRO ---
Date of service: 07/31/25 Time of Service: 08:12 Social Determinants of Health Screening Will the Patient Participate in the Screening?: Declined to provide Do you worry about having a steady place to live?: choose not to answer
[2025-07-31 08:18] VITALS: PULSE 64; O2SAT 92
[2025-07-31 08:26] VITALS: PULSE 65
[2025-07-31] MEDS: Cefpodoxime 200 MG TAB PO (09:08)
--- NOTE | 2025-07-31 11:19 | PDOC.CMDIS ---
Date of service: 07/31/25 Time of Service: 11:19 LACE Index Scoring Tool Questions: Length of Stay (in days): 2 Was the patient admitted via the E.D.?: Yes E.D. Visits: 1 Answers: Total Score: 6 Risk of Readmission: Low Risk Care Management Discharge Plan Reason for Hospitalization: Influenza Discharge Plan: Phu is discharged home via private vehicle with family. He will follow up with community providers and continue per his discharge plan of care. No new services are ordered before discharge. Patient discharged before receiving a return to work letter. A letter to return to work on 08/07/25, without restrictions, is available for lease picker. Patient/Family Education Needs: Review discharge instructions and plan to follow up after discharge. Discuss ask me three.
== END 2025-07-31 10:57 | disposition home or self-care (01) | DRG 193 ==
LOC: ER 14:28 → EDHOLD 14:36 → MS 18:13
PROVIDERS: Admitting Provider Family Medicine; Emergency Provider Physician Assistant; PCP Nurse Practitioner Family; Responsible Provider Family Medicine; Visit Provider Family Medicine
DX: J10.1 Influenza due to other identified influenza virus with other respiratory manifestations (principal); J96.21 Acute and chronic respiratory failure with hypoxia; J96.22 Acute and chronic respiratory failure with hypercapnia; Z68.44 Body mass index [BMI] 60.0-69.9, adult; E66.9 Obesity, unspecified; R19.7 Diarrhea, unspecified; R51.9 Headache, unspecified; F10.10 Alcohol abuse, uncomplicated; F32.A Depression, unspecified; F17.210 Nicotine dependence, cigarettes, uncomplicated
CPT/HCPCS: 00123; 36415; 80048; 80053; 82805; 83690; 85027; 87040; 87637; 87641; 93005; 94640; 94761; 96365; 96366; 96367; 96368; 96375; 99291; 71046; 83605; 83735; 83880; 84484; 85025; 85379; 93010; 94664; 94667; 94668; 94760; 99222; 99231; J0456; J0696; J1650; J1885; J2405; J2919; J3475; J7620